=== PATIENT | male | born 1935 | race Caucasian/White ===

== ENCOUNTER 2017-10-14 10:26 | Emergency (ER) | payer OTHER, MEDICARE ==
[~2017-10-14] VITALS: Ht 167.6 cm; Wt 112.5 kg
[~2017-10-14 10:26] MED LIST: ALBU0.08 INH; ASPEC81 PO; CRG125 PO; DRGTP12 TOP; FLUT1AER14; FLUT1INH7 INH; GLC500 PO; LINA1TAB PO; MAGN400T6 PO; MOME100A INH; POTA10TA; PRED10TA PO; XPNIN INH
[2017-10-14 10:34] VITALS: Ht 167.6 cm; Wt 112.5 kg
[2017-10-14 10:57] VITALS: TEMP 36.6
[2017-10-14] MEDS ORDERED: MoRPHine SULFATE 10 MG/ML CARP/VIAL IV STA (11:06)
[2017-10-14] MEDS ORDERED: ACETAMINOPHEN IV 100 ML IV STA (11:09)
--- NOTE | 2017-10-14 11:09 | EMERGENCY ROOM VISIT NOTE ---
History Report prepared by Stacia: Murali Jimenez Under the Supervision of: Dr. Mauricio Blair M.D. First contact with patient: 10:37 Chief Complaint: BACK PAIN Stated Complaint: BACK PAIN History of Present Illness The patient is a 82 year old male who presents to the Emergency Room via EMS with complaints of worsening back pain that began 2 days ago. Patient states the pain is located on top of a "fatty" tumor near a rib on his back. He describes the pain as sharp and achy. Patient states he took Oxycodone prior to EMS arriving but it did not relieve the pain. Patient states he has a history of stage 3 metastatic lung cancer and "fatty" tumors. He states his oncologist is Dr. Dow. Patient states he uses 3L of oxygen for history of COPD. He adds he has a fentanyl patch for his chronic pain. He states he takes Aspirin. Patient is present with his son and daughter. Source of History: patient Onset: 2 days ago Position: back Quality: ache, sharp Timing: worsening Modifying Factors (Relieving): other (None) Review of Systems See HPI for pertinent positives and negatives. A total of ten systems were reviewed and were otherwise negative. Past Medical & Surgical Medical Problems: (1) Acute and chronic respiratory failure with hypoxia (2) COPD exacerbation (3) Diabetes mellitus, type II (4) Lung mass (5) Pneumonia Family History Omitted secondary to age. Social History Smoking Status: Former Smoker Marital Status: Housing Status: lives alone Occupation Status: retired Current/Historical Medications Scheduled Albuterol Sulf (Proventil 0.083% 2.5MG/3ML), 2.5 MG INH QID Aspirin (Aspirin Ec), 81 MG PO DAILY Carvedilol (Coreg), 12.5 MG PO BID Esomeprazole Magnesium (Nexium), 40 MG PO BID Ezetimibe (Zetia), 10 MG PO DAILY Fentanyl (Fentanyl), 12 MCG TOP [id number] Jxalurzodpq-Fmaisdlkjdaf-Geiim (Trelegy Ellipta 100-62.5-25 Mcg/INH), 1 PUFF INH DAILY Furosemide (Lasix), 20 MG PO DAILY Gemfibrozil (Lopid), 600 MG PO BID Ipratropium [place] (Atrovent 0.02% Soln), 2.5 ML INH QID Linagliptin (Tradjenta), 5 MG PO DAILY Magnesium Oxide (Mag-Ox), 400 MG PO DAILY Metformin Hcl (Glucophage), 1,000 MG PO BID Nitroglycerin (Nitrostat), 0.4 MG UT PRN Potassium Chloride (Klor-Con M20), 20 MEQ PEG DAILY Prednisone (Prednisone), 10 MG PO DAILY Sertraline (Zoloft), 1 TAB PO DAILY Sucralfate (Sucralfate), 1 GM PO PM Tamsulosin Hcl (Flomax), 0.4 MG PO DAILY Scheduled PRN Levalbuterol Tartrate (Levalbuterol Tartrate Hfa), 2 INHA PO Q6 PRN for COPD Lidocaine (Lidocaine), 1 PATCH TD DAILY PRN for Pain Oxycodone Hcl (Oxycontin), 15 MG PO Q6 PRN for Pain Allergies Coded Allergies: Codeine (Verified Adverse Reaction, Unknown, "FEEL LIKE I'M GOING OUT-- FLOATING", 10/14/17) Physical Exam Vital Signs Date Time Temp Pulse Resp B/P (MAP) Pulse Ox O2 Delivery O2 Flow Rate FiO2 10/14/17 16:30 76 24 137/90 93 Nasal Cannula 3.0 10/14/17 15:06 69 18 95 10/14/17 14:36 66 17 96 10/14/17 14:22 69 10/14/17 14:06 69 18 135/76 97 Nasal Cannula 3.0 10/14/17 14:06 68 12 135/76 96 10/14/17 12:36 72 24 96 10/14/17 12:31 127/88 10/14/17 12:13 72 20 96 10/14/17 12:01 136/76 10/14/17 11:52 117/75 10/14/17 11:43 74 24 96 10/14/17 11:32 97 Nasal Cannula 3.0 10/14/17 11:32 97 Nasal Cannula 3.0 10/14/17 11:13 74 20 95 10/14/17 11:02 133/88 10/14/17 10:57 36.6 75 25 154/73 95 Nasal Cannula 3.0 10/14/17 10:43 78 36 95 10/14/17 10:42 75 10/14/17 10:34 36.6 75 25 154/73 95 Nasal Cannula 3.0 Physical Exam GENERAL: Awake, alert, uncomfortable, chronically ill-appearing, in no distress HENT: Normocephalic, atraumatic. Oropharynx unremarkable. Mucous membranes are dry. EYES: Normal conjunctiva. Sclera non-icteric. NECK: Supple. No nuchal rigidity. FROM. No JVD. RESPIRATORY: Scattered wheezes otherwise clear to auscultation. CARDIAC: Regular rate, normal rhythm. Extremities warm and well perfused. Pulses equal. ABDOMEN: Soft, non-distended. No tenderness to palpation. No rebound or guarding. No masses. RECTAL: Deferred. MUSCULOSKELETAL: Mild tenderness to left mid back and left flank otherwise chest examination reveals no tenderness. The back is symmetrical on inspection without obvious abnormality. There is no CVA tenderness to palpation. No joint edema. LOWER EXTREMITIES: Calves are equal size bilaterally and non-tender. No edema. No discoloration. NEURO: Normal sensorium. No sensory or motor deficits noted. SKIN: No rash or jaundice noted. Medical Decision & Procedures ER Provider Diagnostic Interpretation: Radiology results as stated below per my review and radiologist interpretation: CHEST ONE VIEW PORTABLE HISTORY: 82 years-old Male CHEST PAIN acute atypical chest pain COMPARISON: Chest radiograph 10/02/2017, CT chest 10/01/2017 TECHNIQUE: Portable AP view of the chest FINDINGS: Soft tissue opacity about the right mediastinum and paratracheal tissues on the right redemonstrated. Linear atelectasis of the right upper lobe with subsegmental left basilar opacities. No pneumothorax, pleural effusion or overt pulmonary edema. The lungs are mildly hypoinflated. Cardiac silhouette is enlarged. Bones of the chest appear grossly intact. Calcific tendinosis about the left shoulder. IMPRESSION: 1. Redemonstration of the masslike opacity about the right hilum with soft tissue prominence of the right paratracheal tissues, better seen and described on comparison CT chest 10/01/2017. 2. Subsegmental right upper lobe and left basilar opacities suggest atelectasis. 3. Cardiomegaly. The above report was generated using voice recognition software. It may contain grammatical, syntax or spelling errors. Electronically signed by: Ibrahima Figueroa M.D. 10/14/2017 11:26 AM ABDOMEN AND PELVIS CT WITH IV CONTRAST CT DOSE: 1307.45 mGy.cm HISTORY: Acute left flank pain and back pain with history of lung cancer left flank pain, lung cancer, metastatic disease TECHNIQUE: Multiaxial CT images of the abdomen and pelvis were performed following the use of intravenous contrast. A dose lowering technique was utilized adhering to the principles of ALARA. COMPARISON STUDY: CTA chest of same day FINDINGS: Lesion of the pericardium and subpericardial fat redemonstrated. Coronary arterial calcifications. Mural fibrofatty changes of the left ventricular apex suggest prior infarction. Subsegmental consolidative and groundglass opacities about the left lung base. No pneumatosis or pneumoperitoneum. Ill-defined 1.8 cm hypodense mass of the left hepatic lobe, image 136 series 3. Probable cyst of the left hepatic lobe seen on image 153 series 3 measures 1.5 cm. No intrahepatic biliary ductal dilation. Punctate calcified granuloma the medial right hepatic lobe. Mild gallbladder distention. Spleen, pancreas and left fibula are unremarkable. Mild nodular thickening of the right adrenal gland. Mild nonspecific bilateral perinephric stranding. 2.2 cm cyst of the posterior interpolar left kidney. Mild cortical lobulation bilaterally. No renal calculi or Dr. uropathy. Mild prostamegaly with mild urinary bladder distention. No filling defects identified within the ureters or collecting systems. There is omental nodules are seen measuring up to 1.6 cm about the lateral left midabdomen. Nodules are seen within the retroperitoneum measuring up to 1.1 cm, image 197 series 3 and measuring up to 1.3 cm on image 161 series 3. Moderate calcification of the aorta with fusiform infrarenal abdominal aortic aneurysm, 3.8 x 4.0 cm. No dissection. The IVC appears unremarkable. There is no bowel obstruction or focal bowel wall thickening. Colonic diverticulosis without diverticulitis. Terminal ileum and appendix appear unremarkable. The soft tissues are within normal limits. There are no definite suspicious lytic or blastic bony lesions to suggest osseous metastasis. Advanced facet arthropathy about the lower lumbar spine. There is an acute nondisplaced fracture of the posterior lateral left 10th rib. No acute compression fracture. IMPRESSION: 1. Acute nondisplaced fracture of the posterior lateral left 10th rib. 2. Subsegmental consolidative and groundglass opacities about the left lung base suggest atelectasis or pulmonary contusion with pneumonitis also in the differential. 3. 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 4. Ill-defined hypodense 1.8 cm lesion of the left hepatic lobe. Differential considerations would include hemangioma or metastasis. This can be correlated with a nonemergent MRI of the liver. 5. Colonic diverticulosis without diverticulitis. 6. Additional findings as above. Electronically signed by: Ibrahima Figueroa M.D. 10/14/2017 2:39 PM (CHEST FOR PE) ANGIO WITH CT DOSE: 723.25 mGy.cm HISTORY: 82 years-old Male with . Presents with acute back pain and chest pain with shortness of breath. No reported trauma TECHNIQUE: Multiple CTA images of the chest were obtained after the intravenous administration of 113 ml Optiray 320. Coronal and sagittal MIPS were obtained from the axial data set and were submitted for review. A dose lowering technique was utilized adhering to the principles of ALARA. COMPARISON: CT abdomen and pelvis of same day, CT chest 10/01/2017 FINDINGS: Motion degraded exam. CTA: Moderate multichamber cardiac enlargement. Coronary arterial calcifications are noted. There is moderate mixed plaquing about the thoracic aorta, notably with eccentric atheromatous plaque at the aortic isthmus and proximal descending thoracic aorta appearing unchanged. There is no aortic aneurysm or dissection. There is tortuosity about the descending thoracic aorta. The imaged great vessels appear patent. The pulmonary arterial tree is opacified to the subsegmental branches, however the segmental and subsegmental branches are not well evaluated secondary to respiratory motion artifact. No central pulmonary embolus identified. CT CHEST: No dominant thyroid nodule identified. Pathologically enlarged mediastinal lymph nodes are redemonstrated including right paratracheal lymph nodes measuring up to 2.3 x 1.2 cm, unchanged. Ill-defined soft tissue nodularity measuring 1.6 x 0.9 cm is noted involving the pericardium into the subcutaneous pericardial fat, image 95 series 4. Soft tissue attenuating mass of the right hilum redemonstrated measuring 4.6 x 3.3 cm, image 157 series 4 which narrows and occludes the right upper lobe bronchus. There is progressively worsened partial collapse of the right upper lobe with superior elevation of the minor fissure. The mass displaces the adjacent pulmonary vasculature. Subsegmental consolidative and groundglass opacities about the left lung base. No definite suspicious pulmonary nodules to suggest pulmonary metastasis. Mild subsegmental right basilar atelectasis. There are a few scattered areas of pleural calcification. No acute process of the imaged upper abdomen. Soft tissues are within normal limits. The bones appear intact. IMPRESSION: 1. Motion degraded exam without acute aortic pathology or evidence of pulmonary thromboembolic disease. 2. 4.6 cm right hilar mass suggestive of primary bronchogenic carcinoma redemonstrated with narrowing and occlusion of the right upper lobe bronchus. There is progressively worsened partial collapse of the right upper lobe from comparison study 10/01/2017. If not already conducted, bronchoscopy with tissue sampling is needed. 3. Enlarged mediastinal adenopathy redemonstrated suggesting lymphatic metastasis. Masslike soft tissue nodule measuring 1.6 cm involving the anterior pericardium extending into the subpericardial fat is also suspicious for metastasis. 4. Subsegmental consolidative and groundglass opacities about the left lung base suggest atelectasis or pneumonitis. 5. Cardiomegaly. The above report was generated using voice recognition software. It may contain grammatical, syntax or spelling errors. Electronically signed by: Ibrahima Figueroa M.D. 10/14/2017 2:12 PM Laboratory Results 10/14/17 11:30 Red Blood Count 3.76, Mean Corpuscular Volume 91.2, Mean Corpuscular Hemoglobin 29.8, Mean Corpuscular Hemoglobin Concent 32.7, Mean Platelet Volume 9.5, Neutrophils (%) (Auto) 81.0, Lymphocytes (%) (Auto) 10.9, Monocytes (%) (Auto) 5.9, Eosinophils (%) (Auto) 0.7, Basophils (%) (Auto) 0.2, Neutrophils # (Auto) 8.43, Lymphocytes # (Auto) 1.13, Monocytes # (Auto) 0.61, Eosinophils # (Auto) 0.07, Basophils # (Auto) 0.02 10/14/17 11:30 Test 10/14/17 11:30 10/14/17 15:50 White Blood Count 10.40 K/uL (4.8-10.8) Red Blood Count 3.76 M/uL (4.7-6.1) Hemoglobin 11.2 g/dL (14.0-18.0) Hematocrit 34.3 % (42-52) Mean Corpuscular Volume 91.2 fL (80-100) Mean Corpuscular Hemoglobin 29.8 pg (25-34) Mean Corpuscular Hemoglobin Concent 32.7 g/dl (32-36) Platelet Count 221 K/uL (130-400) Mean Platelet Volume 9.5 fL (7.4-10.4) Neutrophils (%) (Auto) 81.0 % Lymphocytes (%) (Auto) 10.9 % Monocytes (%) (Auto) 5.9 % Eosinophils (%) (Auto) 0.7 % Basophils (%) (Auto) 0.2 % Neutrophils # (Auto) 8.43 K/uL (1.4-6.5) Lymphocytes # (Auto) 1.13 K/uL (1.2-3.4) Monocytes # (Auto) 0.61 K/uL (0.11-0.59) Eosinophils # (Auto) 0.07 K/uL (0-0.5) Basophils # (Auto) 0.02 K/uL (0-0.2) RDW Standard Deviation 48.4 fL (36.4-46.3) RDW Coefficient of Variation 14.5 % (11.5-14.5) Immature Granulocyte % (Auto) 1.3 % Immature Granulocyte # (Auto) 0.14 K/uL (0.00-0.02) Anion Gap 9.0 mmol/L (3-11) Est Creatinine Clear Calc Drug Dose 59.3 ml/min Estimated GFR () 68.8 Estimated GFR (Non- 59.4 BUN/Creatinine Ratio 23.7 (10-20) Calcium Level 8.9 mg/dl (8.5-10.1) Magnesium Level 1.9 mg/dl (1.8-2.4) Total Bilirubin 0.3 mg/dl (0.2-1) Direct Bilirubin 0.1 mg/dl (0-0.2) Aspartate Amino Transf (AST/SGOT) 29 U/L (15-37) Alanine Aminotransferase (ALT/SGPT) 52 U/L (12-78) Alkaline Phosphatase 57 U/L (45-117) Troponin I < 0.015 ng/ml (0-0.045) Total Protein 7.1 gm/dl (6.4-8.2) Albumin 3.4 gm/dl (3.4-5.0) Lipase 336 U/L (73-393) Urine Color YELLOW Urine Appearance CLEAR (CLEAR) Urine pH 5.0 (4.5-7.5) Urine Specific [place] > 1.045 (1.000-1.030) Urine Protein NEG (NEG) Urine Glucose (UA) NEG (NEG) Urine Ketones NEG (NEG) Urine Occult Blood NEG (NEG) Urine Nitrite NEG (NEG) Urine Bilirubin NEG (NEG) Urine Urobilinogen NEG (NEG) Urine Leukocyte Esterase NEG (NEG) Laboratory results reviewed by me Medications Administered Medications (Trade) Dose Ordered Sig/Magdi Route Start Time Stop Time Status Last Admin Dose Admin Morphine Sulfate (MoRPHine SULFATE INJ) 8 mg NOW STAT IV 10/14/17 11:06 10/14/17 11:08 DC 10/14/17 11:47 8 MG Acetaminophen 100 ml @ 400 mls/hr NOW STAT IV 10/14/17 11:09 10/14/17 11:23 DC 10/14/17 11:48 400 MLS/HR Lidocaine (Lidoderm Patch 5%) 1 patch NOW STAT TD 10/14/17 15:02 10/14/17 15:04 DC 10/14/17 15:39 1 PATCH ECG Per My Interpretation Indication: back/shoulder pain Rate (beats per minute): 72 Rhythm: normal sinus Findings: no acute ischemic change, other (Normal axis) ED Course 1038: The patient was evaluated in room A10. A complete history and physical exam was performed. Medical Decision I reviewed the patient's past medical history, medications, and the nursing notes as described above. Differential diagnosis: Etiologies such as musculoskeletal, disc herniation, fracture, aortic disease, metastatic disease, cord compression, discitis, infection, renal colic, gastrointestinal, acute exacerbation of chronic back pain, sciatica, cauda equina, as well as others were entertained. The patient is a pleasant 82-year-old gentleman with a past medical history of a recent diagnosis of metastatic small cell lung cancer, COPD on 3 L nasal cannula at baseline, CHF, hypertension who presents emergency department with persistent left mid thoracic pain per hpi. On arrival the patient is uncomfortable and chronically ill-appearing but no acute distress, afebrile stable vital signs, on his 3 L nasal cannula. On exam the patient has mild tenderness along the paraspinal left mid thoracic region. There is no masses, erythema, warmth, or crepitus. On exam the patient has diminished breath sounds at the bases with scant intermittent wheeze. WBC within normal limits, chemistry unremarkable without evidence of acidosis, UA negative without blood. Overall the patient's CT of his chest, abdomen pelvis demonstrates worsening metastatic disease. In particular the patient was observed to have a left posterior lateral 10th rib fracture that likely explains the patient's pain he is tender exactly in this area. Otherwise, the scan is negative for PE. Unclear the etiology to the patient's rib fracture at this time given that he denies any falls. However given the mechanism where he says he was bending over to tie his shoe is suspicious for possible pathologic fracture. The patient does have a PET scan scheduled for tomorrow morning as part of his overall staging to help inform treatment. Given the patient is reporting his respiratory status is at his baseline and is otherwise in no distress with pain controlled after IV morphine, there is no indication for admission at this time. Additionally, given that the patient is afebrile with WBC within normal limits unlikely to have infectious process at this time. Additionally it is important to continue with the patient's scheduled staging and treatment planning for his cancer should proceed promptly. Thus, will optimize his pain control with Lidoderm patch and scheduled Tylenol in addition to his already prescribed as needed oxycodone. He will also perform incentive spirometer as well. Patient and family were counseled on the risks of rib fractures in the elderly and thus was instructed to return to the emergency department with any worsening in his respiratory status. Findings and plan for follow-up reviewed with patient. Patient agreeable and d/c'd per discharge instructions. Impression Primary Impression: Left rib fracture Additional Impressions: Small cell lung cancer Metastatic disease Scribe Attestation The scribe's documentation has been prepared under my direction and personally reviewed by me in its entirety. I confirm that the note above accurately reflects all work, treatment, procedures, and medical decision making performed by me. Departure Information Dispostion Home / Self-Care Prescriptions Lidocaine (Lidocaine) 1 Patch Tdsy 1 PATCH TD DAILY Y for Pain, #10 PATCH Prov: Mauricio Blair M.D. 10/14/17 Referrals Raj Shi D.O. (PCP) Patient Instructions Cancer Lung, ED Fx Rib, [facility] Additional Instructions Please follow up with your providers as scheduled this week for re-evaluation and to continue your evaluation and treatment planning for your metastatic lung cancer You were found to have a new left rib fracture that explains her pain today. Otherwise, your CT scan did demonstrate worsening of your known metastatic disease. Continue your current medications as prescribed. Take acetaminophen every 6 hours to help with pain control. Use your oxycodone as prescribed by her doctor for additional breakthrough pain. Lidoderm patch for additional pain relief. Incentive spirometer 10 times an hour while awake. Return to the emergency department for worsening symptoms as described in the accompanying instructions. Problem Qualifiers
--- NOTE | 2017-10-14 11:28 | DIAGNOSTIC IMAGING REPORT ---
CHEST ONE VIEW PORTABLE HISTORY: 82 years-old Male CHEST PAIN acute atypical chest pain COMPARISON: Chest radiograph 10/02/2017, CT chest 10/01/2017 TECHNIQUE: Portable AP view of the chest FINDINGS: Soft tissue opacity about the right mediastinum and paratracheal tissues on the right redemonstrated. Linear atelectasis of the right upper lobe with subsegmental left basilar opacities. No pneumothorax, pleural effusion or overt pulmonary edema. The lungs are mildly hypoinflated. Cardiac silhouette is enlarged. Bones of the chest appear grossly intact. Calcific tendinosis about the left shoulder. IMPRESSION: 1. Redemonstration of the masslike opacity about the right hilum with soft tissue prominence of the right paratracheal tissues, better seen and described on comparison CT chest 10/01/2017. 2. Subsegmental right upper lobe and left basilar opacities suggest atelectasis. 3. Cardiomegaly. The above report was generated using voice recognition software. It may contain grammatical, syntax or spelling errors. Electronically signed by: Ibrahima Figueroa M.D. 10/14/2017 11:26 AM Dictated Date/Time: 10/14/2017 11:23 AM
[2017-10-14 11:32] VITALS: O2SAT 97
[2017-10-14 11:44] LABS: BASO % 0.2 %; BASO ABS # 0.02 K/uL (0-0.2); EOS % 0.7 %; EOS ABS # 0.07 K/uL (0-0.5); HEMATOCRIT 34.3 % (42-52); HEMOGLOBIN 11.2 g/dL (14.0-18.0); IG# 0.14 K/uL (0.00-0.02); LYMPH % 10.9 %; LYMPH ABS # 1.13 K/uL (1.2-3.4); MEAN CELL VOLUME 91.2 fL (80-100); MEAN CORPUSCULAR HEMOGLOBIN 29.8 pg (25-34); MEAN CORPUSCULAR HGB CONC 32.7 g/dl (32-36); MEAN PLATELET VOLUME 9.5 fL (7.4-10.4); MONO % 5.9 %; MONO ABS # 0.61 K/uL (0.11-0.59); NEUT ABS # 8.43 K/uL (1.4-6.5); PLATELET COUNT 221 K/uL (130-400); RED CELL DISTRIBUTION WIDTH CV 14.5 % (11.5-14.5); RED CELL DISTRIBUTION WIDTH SD 48.4 fL (36.4-46.3)
[2017-10-14 12:07] LABS: ALBUMIN 3.4 gm/dl (3.4-5.0); ALKALINE PHOSPHATASE 57 U/L (45-117); ALT/SGPT 52 U/L (12-78); AST/SGOT 29 U/L (15-37); BLOOD UREA NITROGEN 27 mg/dl (7-18); CALCIUM 8.9 mg/dl (8.5-10.1); CARBON DIOXIDE 25 mmol/L (21-32); CREATININE 1.15 mg/dl (0.60-1.40); GLUCOSE 178 mg/dl (70-99); LIPASE 336 U/L (73-393); POTASSIUM 4.8 mmol/L (3.5-5.1); SODIUM 138 mmol/L (136-145); TOTAL PROTEIN 7.1 gm/dl (6.4-8.2)
[2017-10-14] MEDS ORDERED: CARV12.52 PO (13:24)
[2017-10-14] MEDS ORDERED: FLUT1AER14 INH (13:24)
[2017-10-14] MEDS ORDERED: OXYC15TA89 PO (13:24)
[2017-10-14] MEDS ORDERED: LINA1TAB PO (13:24)
[2017-10-14] MEDS ORDERED: LEVA45AE PO (13:24)
[2017-10-14] MEDS ORDERED: PRED10TA PO (13:24)
[2017-10-14] MEDS ORDERED: ALBINS/ INH (13:24)
[2017-10-14] MEDS ORDERED: MCRK20 PEG (13:24)
[2017-10-14] MEDS ORDERED: ASPI81TA28 PO (13:24)
[2017-10-14] MEDS ORDERED: METF1000 PO (13:24)
[2017-10-14] MEDS ORDERED: OPTIRAY 320 IV PRN (13:30)
--- NOTE | 2017-10-14 14:14 | DIAGNOSTIC IMAGING REPORT ---
(CHEST FOR PE) ANGIO WITH CT DOSE: 723.25 mGy.cm HISTORY: 82 years-old Male with . Presents with acute back pain and chest pain with shortness of breath. No reported trauma TECHNIQUE: Multiple CTA images of the chest were obtained after the intravenous administration of 113 ml Optiray 320. Coronal and sagittal MIPS were obtained from the axial data set and were submitted for review. A dose lowering technique was utilized adhering to the principles of ALARA. COMPARISON: CT abdomen and pelvis of same day, CT chest 10/01/2017 FINDINGS: Motion degraded exam. CTA: Moderate multichamber cardiac enlargement. Coronary arterial calcifications are noted. There is moderate mixed plaquing about the thoracic aorta, notably with eccentric atheromatous plaque at the aortic isthmus and proximal descending thoracic aorta appearing unchanged. There is no aortic aneurysm or dissection. There is tortuosity about the descending thoracic aorta. The imaged great vessels appear patent. The pulmonary arterial tree is opacified to the subsegmental branches, however the segmental and subsegmental branches are not well evaluated secondary to respiratory motion artifact. No central pulmonary embolus identified. CT CHEST: No dominant thyroid nodule identified. Pathologically enlarged mediastinal lymph nodes are redemonstrated including right paratracheal lymph nodes measuring up to 2.3 x 1.2 cm, unchanged. Ill-defined soft tissue nodularity measuring 1.6 x 0.9 cm is noted involving the pericardium into the subcutaneous pericardial fat, image 95 series 4. Soft tissue attenuating mass of the right hilum redemonstrated measuring 4.6 x 3.3 cm, image 157 series 4 which narrows and occludes the right upper lobe bronchus. There is progressively worsened partial collapse of the right upper lobe with superior elevation of the minor fissure. The mass displaces the adjacent pulmonary vasculature. Subsegmental consolidative and groundglass opacities about the left lung base. No definite suspicious pulmonary nodules to suggest pulmonary metastasis. Mild subsegmental right basilar atelectasis. There are a few scattered areas of pleural calcification. No acute process of the imaged upper abdomen. Soft tissues are within normal limits. The bones appear intact. IMPRESSION: 1. Motion degraded exam without acute aortic pathology or evidence of pulmonary thromboembolic disease. 2. 4.6 cm right hilar mass suggestive of primary bronchogenic carcinoma redemonstrated with narrowing and occlusion of the right upper lobe bronchus. There is progressively worsened partial collapse of the right upper lobe from comparison study 10/01/2017. If not already conducted, bronchoscopy with tissue sampling is needed. 3. Enlarged mediastinal adenopathy redemonstrated suggesting lymphatic metastasis. Masslike soft tissue nodule measuring 1.6 cm involving the anterior pericardium extending into the subpericardial fat is also suspicious for metastasis. 4. Subsegmental consolidative and groundglass opacities about the left lung base suggest atelectasis or pneumonitis. 5. Cardiomegaly. The above report was generated using voice recognition software. It may contain grammatical, syntax or spelling errors. Electronically signed by: Ibrahima Figueroa M.D. 10/14/2017 2:12 PM Dictated Date/Time: 10/14/2017 2:03 PM
--- NOTE | 2017-10-14 14:40 | DIAGNOSTIC IMAGING REPORT ---
ABDOMEN AND PELVIS CT WITH IV CONTRAST CT DOSE: 1307.45 mGy.cm HISTORY: Acute left flank pain and back pain with history of lung cancer left flank pain, lung cancer, metastatic disease TECHNIQUE: Multiaxial CT images of the abdomen and pelvis were performed following the use of intravenous contrast. A dose lowering technique was utilized adhering to the principles of ALARA. COMPARISON STUDY: CTA chest of same day FINDINGS: Lesion of the pericardium and subpericardial fat redemonstrated. Coronary arterial calcifications. Mural fibrofatty changes of the left ventricular apex suggest prior infarction. Subsegmental consolidative and groundglass opacities about the left lung base. No pneumatosis or pneumoperitoneum. Ill-defined 1.8 cm hypodense mass of the left hepatic lobe, image 136 series 3. Probable cyst of the left hepatic lobe seen on image 153 series 3 measures 1.5 cm. No intrahepatic biliary ductal dilation. Punctate calcified granuloma the medial right hepatic lobe. Mild gallbladder distention. Spleen, pancreas and left fibula are unremarkable. Mild nodular thickening of the right adrenal gland. Mild nonspecific bilateral perinephric stranding. 2.2 cm cyst of the posterior interpolar left kidney. Mild cortical lobulation bilaterally. No renal calculi or Dr. uropathy. Mild prostamegaly with mild urinary bladder distention. No filling defects identified within the ureters or collecting systems. There is omental nodules are seen measuring up to 1.6 cm about the lateral left midabdomen. Nodules are seen within the retroperitoneum measuring up to 1.1 cm, image 197 series 3 and measuring up to 1.3 cm on image 161 series 3. Moderate calcification of the aorta with fusiform infrarenal abdominal aortic aneurysm, 3.8 x 4.0 cm. No dissection. The IVC appears unremarkable. There is no bowel obstruction or focal bowel wall thickening. Colonic diverticulosis without diverticulitis. Terminal ileum and appendix appear unremarkable. The soft tissues are within normal limits. There are no definite suspicious lytic or blastic bony lesions to suggest osseous metastasis. Advanced facet arthropathy about the lower lumbar spine. There is an acute nondisplaced fracture of the posterior lateral left 10th rib. No acute compression fracture. IMPRESSION: 1. Acute nondisplaced fracture of the posterior lateral left 10th rib. 2. Subsegmental consolidative and groundglass opacities about the left lung base suggest atelectasis or pulmonary contusion with pneumonitis also in the differential. 3. 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 4. Ill-defined hypodense 1.8 cm lesion of the left hepatic lobe. Differential considerations would include hemangioma or metastasis. This can be correlated with a nonemergent MRI of the liver. 5. Colonic diverticulosis without diverticulitis. 6. Additional findings as above. Electronically signed by: Ibrahima Figueroa M.D. 10/14/2017 2:39 PM Dictated Date/Time: 10/14/2017 2:30 PM
[2017-10-14] MEDS ORDERED: LIDODERM (LIDOCAINE) PATCH 5% TD STA (15:02)
[2017-10-14] MEDS ORDERED: LDDP5 TD (15:56)
[2017-10-14 16:30] VITALS: BP 137/90; PULSE 76; O2SAT 93
[2017-10-14] MEDS ORDERED: FURO-85 PO (16:54)
[2017-10-14] MEDS ORDERED: SERT25TA PO (17:03)
[2017-10-14] MEDS ORDERED: SUCR1TAB PO (17:04)
[2017-10-14] MEDS ORDERED: TAMS0.4C38 PO (17:05)
[2017-10-14] MEDS ORDERED: NXM/40 PO (18:31)
[2017-10-14] MEDS ORDERED: NTRGSL/4 UT (18:31)
[2017-10-14] MEDS ORDERED: EZET10TA63 PO (20:42)
[2017-10-14] MEDS ORDERED: ATRINSX INH (20:42)
[2017-10-14] MEDS ORDERED: GEMF600T3 PO (20:45)
== END 2017-10-14 16:35 | disposition home or self-care (01) ==
LOC: EDBD 10:26 → C.EDA 10:27
DX: M84.48XA Pathological fracture, other site, initial encounter for fracture (principal); C34.90 Malignant neoplasm of unspecified part of unspecified bronchus or lung; C79.9 Secondary malignant neoplasm of unspecified site; J44.9 Chronic obstructive pulmonary disease, unspecified; E11.9 Type 2 diabetes mellitus without complications; I11.0 Hypertensive heart disease with heart failure; I50.9 Heart failure, unspecified; G89.29 Other chronic pain; Z87.891 Personal history of nicotine dependence; Z88.5 Allergy status to narcotic agent; Z79.82 Long term (current) use of aspirin; Z79.84 Long term (current) use of oral hypoglycemic drugs; Z79.899 Other long term (current) drug therapy

== ENCOUNTER → 2017-10-17 | Outpatient (CLI) | payer OTHER, MEDICARE ==
[~2017-10-17] MED LIST changes: +ALBINS/ INH; -ALBU0.08 INH; -ASPEC81 PO; +ASPI81TA28 PO; +ATRINSX INH; +CARV12.52 PO; -CRG125 PO; +EZET10TA63 PO; -FLUT1AER14; +FLUT1AER14 INH; -FLUT1INH7 INH; +FURO-85 PO; +GEMF600T3 PO; -GLC500 PO; +LDDP5 TD; +LEVA45AE PO; +MCRK20 PEG; +METF1000 PO; -MOME100A INH; +NTRGSL/4 UT; +NXM/40 PO; +OXYC15TA89 PO; -POTA10TA; +SERT25TA PO; +SUCR1TAB PO; +TAMS0.4C38 PO; -XPNIN INH
--- NOTE | 2017-10-17 09:47 | DIAGNOSTIC IMAGING REPORT ---
PET/CT CLINICAL HISTORY: Small cell lung cancer. TECHNIQUE: A PET/CT was performed from the skull base through the upper thighs following intravenous injection of 13.69 mCi of F 18 FDG IV. The injection was performed at 6:58 AM on October 17, 2017 and imaging began at 7:54 AM on October 17, 2017. Unenhanced CT was performed for attenuation correction purposes and anatomic localization. COMPARISON STUDY: CT of the chest, abdomen and pelvis October 14, 2017. FINDINGS: Head and neck: There is no abnormal FDG uptake within the neck. There is no cervical lymphadenopathy. Chest: Note is made of a central obstructing lesion which occludes the bronchus to the right upper lobe with associated atelectasis. Exact measurements are difficult to obtain given associated collapse. The mass measures approximately 4.4 x 3.6 cm and has marked FDG uptake within SUV max of 9.4. Two enlarged right lower paratracheal lymph nodes measure up to 1.4 cm in short axis diameter and have an SUV max of 6. This represents lai spread of disease. In addition, there is a 1.5 cm anterior pericardial nodule which has an SUV max of 4. Note is also made of a 2.1 cm subcutaneous FDG avid mass within the inferior right shoulder overlying the left latissimus dorsi muscle which has an SUV max of 5.5. The heart is moderately enlarged. Lungs are suboptimally assessed due to respiratory motion. There is no pneumothorax. An acute minimally displaced left 10th rib fracture is noted. This is associated FDG uptake. Abdomen and Pelvis: A 1.9 cm lateral segment lesion is FDG avid with an SUV max of 6.6. This represents metastatic disease. There are few foci of mild FDG uptake within the liver which are suspicious for additional hepatic metastases. Multiple left-sided abdominal nodules are noted which appear to be extraperitoneal, including a 2.1 cm left mid abdominal nodule shown image 160. This has an SUV max of 4.4. A 4 cm infrarenal abdominal aortic aneurysm is noted. There is no evidence for rupture. Musculoskeletal: Note is made of a small focus of mild FDG uptake with an SUV max of 3.8 which projects over the inferior right gluteal musculature. This is shown on axial image 254. Corresponding abnormality is not identified by CT. Note is made of mild FDG uptake within SUV max of 4 within the posterior medial aspect of the left iliac bone shown on axial image 175. IMPRESSION: 1. FDG avid right upper lobe mass which occludes the right upper lobe bronchus consistent with bronchogenic carcinoma. Multiple FDG avid metastases, including right paratracheal lai metastases, a pericardial metastasis, at least one (and several possible additional) hepatic metastasis and multiple soft tissue masses within the right shoulder and left abdomen which are consistent with a neoplastic process and likely reflect metastatic disease. 2. Mild focal FDG uptake within the inferior right gluteal musculature which is nonspecific. A metastatic focus cannot be excluded. 3. Small focus of mild FDG uptake within the posterior medial left iliac bone which could be degenerative or metastatic. 4. 4 cm infrarenal abdominal aortic aneurysm. No rupture. Electronically signed by: Antwon Walton M.D. 10/17/2017 9:45 AM Dictated Date/Time: 10/17/2017 9:03 AM
== END | disposition home or self-care (01) ==
LOC: C.PET 10-15 09:04
PROVIDERS: ATTEND Physician Assistant
DX: C34.91 Malignant neoplasm of unspecified part of right bronchus or lung (principal)

== ENCOUNTER 2017-10-18 14:03 | Inpatient (IN) | payer OTHER, MEDICARE ==
[~2017-10-18] VITALS: Ht 167.6 cm; Wt 106.0 kg
[2017-10-18 15:09] VITALS: BP 143/80; PULSE 78; TEMP 36.6; O2SAT 96
[2017-10-18 15:45] VITALS: BMI 37.5
[2017-10-18 15:48] VITALS: BP 143/80; PULSE 78; TEMP 36.6; Ht 167.6 cm; Wt 106.0 kg
[2017-10-18] MEDS ORDERED: ZOLPIDEM TARTRATE 5 MG TAB PO PRN (16:15)
[2017-10-18] MEDS ORDERED: MAGNESIUM HYDROXIDE SUSP 30 ML UDC PO PRN (16:15)
[2017-10-18] MEDS ORDERED: CARBOHYDRATES FOR HYPOGLYCEMIA PO PRN (16:15)
[2017-10-18] MEDS ORDERED: ONDANSETRON INJ 2 MG/ML 2 ML VIAL IV PRN (16:15)
[2017-10-18] MEDS ORDERED: MoRPHine SULFATE 4 MG/ML 1 ML CARP\\VIAL IV PRN (16:15)
[2017-10-18] MEDS ORDERED: GLUCOSE 10 TABS/TUBE PO PRN (16:15)
[2017-10-18] MEDS ORDERED: DEXTROSE 50% 50 ML SYR IV PRN (16:15)
[2017-10-18] MEDS ORDERED: GLUCOSE 40% GEL 15 GM TUBE PO PRN (16:15)
[2017-10-18] MEDS ORDERED: LEValbuterol HFA 15GM INHALER INH PRN (16:15)
[2017-10-18] MEDS ORDERED: GLUCAGON FOR INJ 1 MG VIAL SQ PRN (16:15)
[2017-10-18] MEDS ORDERED: LORAZEPAM INJ 0.5 MG in SYRINGE 0.75 ML IV PRN (16:15)
[2017-10-18] MEDS ORDERED: NITROGLYCERIN 0.4 MG SL PER TAB CHARGE UT SCH (16:15)
[2017-10-18] MEDS ORDERED: LIDODERM (LIDOCAINE) PATCH 5% TD ONE (16:45)
[2017-10-18] MEDS ORDERED: POLYETHYLENE (MIRALAX) 17 GM PACK PO PRN (16:45)
--- NOTE | 2017-10-18 17:03 | History and Physical ---
History & Physical Date & Time of Service: Oct 18, 2017 at 16:26 Chief Complaint: Hemoptysis, Copd, Lung Ca Primary Care Physician: Raj Shi D.O. History of Present Illness Mr. 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 Seen in the office today by Dr. Olson. He is a direct admit to our service due to uncontrolled pain, new hemoptysis, and failure to thrive. Patient had a recent admission to [facility] for shortness of breath, bronchoscopy was performed on 10/02/2017 and he was subsequently diagnosed with diffuse small cell lung cancer. He presented today to Dr. Olson's office with progressive weakness and new onset shortness of breath. Of note patient has been on 3 L of oxygen at home since before 2011. Patient recently was at home when he went to bend over and pick something up felt a great amount of pain in his side and was found to have a broken rib. Says the pain was unbearable but is currently controlled mostly with a fentanyl patch and Lidoderm patch. Past medical history is significant for diffuse small cell lung cancer predominantly in the right upper lobe occluding the right upper lobe bronchus, multiple metastases including the right paratracheal lai area, pericardial metastasis, and at least one hepatic metastasis, with multiple soft tissue masses in the right shoulder and left abdomen. Also : acute on chronic hypoxic respiratory insufficiency, COPD moderately severe, history of HI with stent 2 in 2011 and 2008, history of aspiration, cor pulmonale, oxygen dependent, GERD, hypertension, obstructive sleep apnea. Incidental finding of a 4 cm infrarenal abdominal aortic aneurysm, nonruptured, on PET scan recently. 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 Patient reports his of cancer in 2011. Patient's daughter is at bedside, and states that the plan is for him to move into her home. Smoking Status: Former Smoker Marital Status: Housing status: lives alone Occupational Status: retired Immunizations History of Influenza Vaccine: Yes History of Tetanus Vaccine?: No History of Pneumococcal: Yes History of Hepatitis B Vaccine: No Allergies Coded Allergies: Codeine (Verified Adverse Reaction, Unknown, "FEEL LIKE I'M GOING OUT-- FLOATING", 10/14/17) Home Medications Scheduled Albuterol Sulf (Proventil 0.083% 2.5MG/3ML), 2.5 MG INH QID Aspirin (Aspirin Ec), 81 MG PO DAILY Carvedilol (Coreg), 12.5 MG PO BID Esomeprazole Magnesium (Nexium), 40 MG PO BID Ezetimibe (Zetia), 10 MG PO DAILY Fentanyl (Fentanyl), 12 MCG TOP [id number] Jksjuwvwlmb-Npmizpxinrve-Glwqx (Trelegy Ellipta 100-62.5-25 Mcg/INH), 1 PUFF INH DAILY Furosemide (Lasix), 20 MG PO DAILY Gemfibrozil (Lopid), 600 MG PO BID Ipratropium [place] (Atrovent 0.02% Soln), 2.5 ML INH QID Linagliptin (Tradjenta), 5 MG PO DAILY Magnesium Oxide (Mag-Ox), 400 MG PO DAILY Metformin Hcl (Glucophage), 1,000 MG PO BID Nitroglycerin (Nitrostat), 0.4 MG UT PRN Potassium Chloride (Klor-Con M20), 20 MEQ PEG DAILY Prednisone (Prednisone), 10 MG PO DAILY Sertraline (Zoloft), 1 TAB PO DAILY Sucralfate (Sucralfate), 1 GM PO PM Tamsulosin Hcl (Flomax), 0.4 MG PO DAILY Scheduled PRN Levalbuterol Tartrate (Levalbuterol Tartrate Hfa), 2 INHA PO Q6 PRN for COPD Lidocaine (Lidocaine), 1 PATCH TD DAILY PRN for Pain Oxycodone Hcl (Oxycontin), 15 MG PO Q6 PRN for Pain Review of Systems Review of systems reveals that patient denies headache or visual change. He does note occasional difficulty swallowing large pills which he says is due to the fact that his tumor is partially compressing on his esophagus. Patient denies chest pain, nasal cannula is in place and patient says his breathing is at his baseline. Patient denies abdominal pain nausea, or vomiting, also denies numbness and tingling in his legs. Physical Exam Vital Signs Date Time Temp Pulse Resp B/P (MAP) Pulse Ox O2 Delivery O2 Flow Rate FiO2 10/18/17 15:48 36.6 78 20 143/80 Nasal Cannula 3.0 10/18/17 15:48 Nasal Cannula 3.0 10/18/17 15:09 36.6 78 20 143/80 (101) 96 GENERAL: Awake, alert, well-nourished, in no distress. Nasal cannula in place. HENT: Normocephalic, atraumatic. Extraocular muscles intact. EYES: Normal conjunctiva. Sclera non-icteric. NECK: Supple. Full range of motion. RESPIRATORY: Clear to auscultation albeit diminished at the bases. CARDIAC: Regular rate, normal rhythm. Grade 2 out of 6 to 3 out of 6 crescendo decrescendo systolic murmur heard best over the aortic valve. Extremities warm and well perfused. Pulses equal. ABDOMEN: Soft, non-distended. No tenderness to palpation. No rebound or guarding. No masses. Patient has a back brace in place. LOWER EXTREMITIES: Calves are equal size bilaterally and non-tender. No edema. No discoloration. NEURO: No focal motor deficits noted. SKIN: No rash or jaundice noted. Impression Assessment and Plan Mr. 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 Small cell lung cancer with metastases -Consult radiation oncology -Consult hematology oncology -Pain is currently controlled on patient's home regimen of fentanyl patch 12 mcg every 72 hours and Lidoderm patch. Will continue this while an inpatient. Also added morphine IV 4 mg every 4 hours as needed for moderate to severe pain. -Patient states he is due for an MRI tomorrow. Will coordinate so that that can still be done. Patient states he does experience anxiety and claustrophobia. As needed Ativan IV has been ordered to be given before MRI done. -Patient's daughter had many questions about how best to accommodate her father at this time. I asked her if she would be interested in a palliative consult to help with these questions. Patient and daughter agreed. Palliative consult ordered. COPD, chronic hypoxic respiratory failure -Continue home nebulizer treatments 4 times daily in the form of DuoNeb's as well as as needed. -O2 per protocol. Patient is on 3 L at home. -Continue home prednisone 10 mg every morning Type 2 diabetes -Hold home and take glycemic's. -Insulin sliding scale -10 units of basal Lantus insulin twice a day Hypertension / CAD / hyperlipidemia -Continue home ezetimibe and gemfibrozil 600 mg twice daily -Continue home carvedilol 12.5 twice daily, Nitrostat as needed, aspirin 81 mg daily. Edema -Continue furosemide 20 mg daily -Continue home Klor-Con 20 mEq daily GERD -Replaced by Protonix 40 mg twice daily -Continue home sucralfate Depression/anxiety -Continue home sertraline 25 mg daily BPH -Continue Flomax 0.4 mg daily FEN/GI: AHA diet, diabetic diet. No fluids indicated at this time DVT prophylaxis: Lovenox 40 mg every 12 hour CODE STATUS: DNR. Discussed and confirmed with patient today. Dispo: MedSurg. Pending radiation oncology, hematology oncology recs. Palliative recs pending. DC planning. PT OT. Resident Physician Supervision Note: I interviewed and examined the patient. Discussed with Dr. Gruber and agree with findings and plan as documented in the note. Any exceptions or clarifications are listed here: None Documented By: Ad olson earlier. chest pain doing better now. hemoptysis vitals noted nad breathing unlabored no pallor or icterus new dx lung ca w new hemoptysis and chest pain -pulmonary direct admit due to concern on decline -supportive care, pain control -oncology evaluations, otherwise as above Advanced Directives Existing Living Will: No Existing Power of Door Core Assembler: No Resuscitation Status DO NOT RESUSCITATE VTE Prophylaxis Will order VTE Prophylaxis: Yes Social Service Consult Cancer Patient Under [place] Additional Copies To Raj Shi D.O. Resident Tracking Resident Involvement: Resident Care Provided Care Provided: Adult Hospital Medicine
[2017-10-18] MEDS: INSULIN ASPART 100 UNITS/ML 3 ML PEN SC SCH ×2 (17:26→20:42)
[2017-10-18] MEDS: ALBUT/IPRATROP 3MG/0.5MG NEB 3 ML VIAL INH SCH (19:39)
[2017-10-18 19:42] VITALS: PULSE 67; O2SAT 97
[2017-10-18] MEDS: PANTOprazole SOD 40 MG TAB PO SCH (20:41)
[2017-10-18] MEDS: ENOXAPARIN 30 MG/0.3 ML SYR SQ SCH (20:41)
[2017-10-18] MEDS: GEMFIBROZIL 600 MG TAB PO SCH (20:41)
[2017-10-18] MEDS: CARVEDILOL 12.5 MG TAB PO SCH (20:41)
[2017-10-18] MEDS: SUCRALFATE 1 GM TAB PO SCH (20:42)
[2017-10-18] MEDS ORDERED: INSULIN GLARGINE SOLOSTAR 100 UNITS/ML 3 ML PEN SC SCH (21:00)
[2017-10-18] MEDS: CHECK FENTANYL PATCH PLACEMENT SCH (22:53)
[2017-10-19] VITALS (9 sets, daily range): BP systolic 111–145; BP diastolic 62–79; PULSE 66–79; TEMP 36.4–36.7; O2SAT 94–96
[2017-10-19] MEDS: ACETAMINOPHEN 325 MG TAB PO PRN (02:18)
[2017-10-19] MEDS: LIDODERM (LIDOCAINE) PATCH 5% TD SCH (06:58)
[2017-10-19] MEDS: ALBUT/IPRATROP 3MG/0.5MG NEB 3 ML VIAL INH SCH ×4 (07:20→18:51)
[2017-10-19] MEDS: CHECK FENTANYL PATCH PLACEMENT SCH ×2 (08:00→16:00)
[2017-10-19] MEDS: ASPIRIN 81 MG ECTAB PO SCH (08:32)
[2017-10-19] MEDS: CARVEDILOL 12.5 MG TAB PO SCH ×2 (08:32→20:12)
[2017-10-19] MEDS: TAMSULOSIN HCL 0.4 MG CAP PO SCH (08:33)
[2017-10-19] MEDS: SERTRALINE HCL 50 MG TAB PO SCH (08:33)
[2017-10-19] MEDS: FUROSEMIDE 20 MG TAB PO SCH (08:34)
[2017-10-19] MEDS: PANTOprazole SOD 40 MG TAB PO SCH ×2 (08:34→20:13)
[2017-10-19] MEDS: GEMFIBROZIL 600 MG TAB PO SCH ×2 (08:34→20:13)
[2017-10-19] MEDS: MAGNESIUM OXIDE 400 MG TAB PO SCH (08:35)
[2017-10-19] MEDS: EZETIMIBE 10MG TAB PO SCH (08:35)
[2017-10-19] MEDS: POTASSIUM CHLORIDE 20 MEQ TABCR PO SCH (08:36)
[2017-10-19] MEDS: ENOXAPARIN 30 MG/0.3 ML SYR SQ SCH ×2 (08:36→20:19)
[2017-10-19] MEDS ORDERED: FLUTICASONE UMECLIDINIUM VILAN INH SCH (09:00)
[2017-10-19] MEDS ORDERED: [UNRECOGNIZED DRUG - OTHER] INH SCH (09:00)
--- NOTE | 2017-10-19 09:08 | Palliative Care Consultation ---
Consultation Date of Consultation: Oct 19, 2017. Requesting Physician: Dr. Gruber Attending Physician: Dr. Gruber, Dr. Chanel Reason for Consultation: Goals of care History of Present Illness This 82 year old male patient with PMH newly diagnosed RUL small cell lung carcinoma, chronic respiratory failure on 3LNC home oxygen, COPD, and others listed below, presented to the hospital as a direct admit from Dr. Qiu's office for weakness and hemoptysis. CXR completed yesterday showed no significant change from previous, slightly improved basilar atelectasis. Hgb stable at 10.8 yesterday (was 11.2 10/14). Radiation oncology was consulted as patient was to have MRI done today and meet with them about starting radiation treatments. Palliative care consulted to discuss goals of care as the patient's daughter explained that the plan is for him to move in to her home and for eventual hospice care. I met with the patient this morning in room 255. He is awake, alert and oriented x4. He is sitting on side of bed and looks to be of good functional status, in no distress. He c/o mild pain/discomfort in left rib where he has a fracture, but it is well controlled with his fentanyl patch and lidoderm patch. Patient states that he does plan to move in with his daughter/POA, Ema Nelson. Patient had cancer, was on hospice, and in the home, so he is familiar with hospice services. Patient stated, "I have to give it [cancer treatment] a try, if it's going to help. But if my heart stops or I stop breathing I don't want any CPR." Patient is amenable to hospice services once he has completed his treatment and/or can no longer tolerate treatment. He has home health on board now. We discussed a POLST form at length and completed it: DNR, limited additional interventions, abx if life can be prolonged, trial period of IVF, NO FEEDING TUBE. Additional orders: "Trial of treatment, including abx, if it's going to help. If no hope of meaningful recovery, make me comfortable." Patient's grandson then entered room and he was updated on POLST form and goals. Patient's daughter Ema Nelson and Renzo "Kellen Theodore Jr. are patient's POAs. 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 GERD HTN VALENTINO 4cm infrarenal abdominal aortic aneurysm Social History Smoking Status: Former Smoker History of Alcohol Use: No (Quit 1995) Marital Status: Housing Status: lives alone Occupation Status: retired Review of Systems Constitutional: + weakness, No fever, No chills ENT: No trouble swallowing Respiratory: + cough, + shortness of breath, + dyspnea on exertion, + hemoptysis (none since admission), No wheezing Cardiac: + chest pain (non-cardiac, from left rib fracture), No edema Abdomen: No pain, No nausea, No vomiting Male : No problem reported Psychiatric: No depression symptoms, No anxiety Allergies Coded Allergies: Codeine (Verified Adverse Reaction, Unknown, "FEEL LIKE I'M GOING OUT-- FLOATING", 10/14/17) Medications Current Inpatient Medications Medications (Trade) Dose Ordered Sig/Magdi Route Start Time Stop Time Status Last Admin Dose Admin Enoxaparin Sodium (Lovenox Inj) 30 mg Q12 SQ 10/18/17 21:00 11/17/17 20:59 10/19/17 08:36 30 MG Acetaminophen (Tylenol Tab) 650 mg Q4H PRN PO 10/18/17 16:15 11/17/17 16:14 10/19/17 02:18 650 MG Magnesium Hydroxide (Milk Of Magnesia Susp) 30 ml Q6H PRN PO 10/18/17 16:15 11/17/17 16:14 Polyethylene (Miralax Powder Packet) 17 gm DAILY PRN PO 10/18/17 16:45 11/17/17 16:44 Ondansetron HCl (Zofran Inj) 4 mg Q6H PRN IV 10/18/17 16:15 11/17/17 16:14 Zolpidem Tartrate (Ambien Tab) 5 mg HSZ PRN PO 10/18/17 16:15 11/17/17 16:14 Insulin Aspart (novoLOG ASPART) SLIDING SCALE If C... ACHS SC 10/18/17 16:30 11/17/17 16:29 10/18/17 17:26 4 UNITS Glucose (Glucose 40% Gel) 15-30 GRAMS 15 GRAMS... UD PRN PO 10/18/17 16:15 11/17/17 16:14 Glucose (Glucose Chew Tab) 4-8 Tablets 4 Tabl... UD PRN PO 10/18/17 16:15 11/17/17 16:14 Dextrose (Dextrose 50% 50ML Syringe) 25-50ML 25ML FOR ... UD PRN IV 10/18/17 16:15 11/17/17 16:14 Glucagon (Glucagon Inj) 1 mg UD PRN SQ 10/18/17 16:15 11/17/17 16:14 Carbohydrates (Carbohydrates For Hypoglycemia) 15-30 GRAMS 15 grams if BSG 54-69... UD PRN PO 10/18/17 16:15 11/17/17 16:14 Aspirin (Ecotrin Tab) 81 mg DAILY PO 10/19/17 09:00 11/18/17 08:59 10/19/17 08:32 81 MG Carvedilol (Coreg Tab) 12.5 mg BID PO 10/18/17 21:00 11/17/17 20:59 10/19/17 08:32 12.5 MG EZETIMIBE (Zetia Tab) 10 mg DAILY PO 10/19/17 09:00 11/18/17 08:59 10/19/17 08:35 10 MG Fentanyl (Duragesic Patch) 12 mcg Q72H TD 10/20/17 09:00 11/03/17 08:59 Furosemide (Lasix Tab) 20 mg DAILY PO 10/19/17 09:00 11/18/17 08:59 10/19/17 08:34 20 MG Gemfibrozil (Lopid Tab) 600 mg BID PO 10/18/17 21:00 11/17/17 20:59 10/19/17 08:34 600 MG Levalbuterol (Xopenex Hfa Inhaler) 2 puffs Q6 PRN INH 10/18/17 16:15 11/17/17 16:14 Lidocaine (Lidoderm Patch 5%) 1 patch DAILY TD 10/19/17 09:00 11/18/17 08:59 10/19/17 06:58 1 PATCH Magnesium Oxide (Mag-Ox Tab) 400 mg DAILY PO 10/19/17 09:00 11/18/17 08:59 10/19/17 08:35 400 MG Nitroglycerin (Nitrostat Tab) 0.4 mg PRN UT 10/18/17 16:15 11/17/17 16:14 Potassium Chloride (Klor-Con Tab) 20 meq DAILY PO 10/19/17 09:00 11/18/17 08:59 10/19/17 08:36 20 MEQ Prednisone (PredniSONE TAB) 10 mg DAILY PO 10/19/17 09:00 11/18/17 08:59 10/19/17 08:34 10 MG Sertraline HCl (Zoloft Tab) 25 mg DAILY PO 10/19/17 09:00 11/18/17 08:59 10/19/17 08:33 25 MG Sucralfate (Carafate Tab) 1 gm PM PO 10/18/17 21:00 11/17/17 20:59 10/18/17 20:42 1 GM Tamsulosin HCl (Flomax Cap) 0.4 mg DAILY PO 10/19/17 09:00 11/18/17 08:59 10/19/17 08:33 0.4 MG Pantoprazole Sodium (Protonix Tab) 40 mg BID PO 10/18/17 21:00 11/17/17 20:59 10/19/17 08:34 40 MG Miscellaneous (Fentanyl Patch Remove & Waste) 1 ea Q3D@0859 N/A 10/20/17 08:59 11/19/17 08:58 Miscellaneous Information (Check Fentanyl Patch Placement) 1 ea QS N/A 10/19/17 00:00 11/18/17 00:00 10/19/17 08:00 1 EA Albuterol/ Ipratropium (Duoneb) 3 ml QIDR INH 10/18/17 20:00 11/17/17 19:59 10/19/17 07:20 3 ML Morphine Sulfate (MoRPHine SULFATE INJ) 4 mg Q4H PRN IV 10/18/17 16:15 11/01/17 16:14 Lorazepam 0.5 mg/ Syringe 1 ml @ 0.5 mls/min DAILY PRN IV 10/18/17 16:15 11/17/17 16:14 Miscellaneous (Remove Lidoderm Patch) 1 ea DAILY@21 N/A 10/18/17 21:00 11/17/17 20:59 10/18/17 20:41 1 EA Miscellaneous Information (Order Awaiting Action) 1 ea QS N/A 10/19/17 00:00 11/18/17 00:00 Physical Exam Date Time Temp Pulse Resp B/P (MAP) Pulse Ox O2 Delivery O2 Flow Rate FiO2 10/19/17 07:49 Nasal Cannula 3.0 10/19/17 07:31 36.5 66 22 143/74 (97) 95 Nasal Cannula 3.0 10/19/17 07:20 72 16 95 Nasal Cannula 3.0 10/19/17 00:00 36.4 67 20 111/62 (78) 95 CPAP 10/18/17 19:42 67 15 97 Nasal Cannula 3.0 10/18/17 15:48 36.6 78 20 143/80 Nasal Cannula 3.0 10/18/17 15:48 Nasal Cannula 3.0 10/18/17 15:09 36.6 78 20 143/80 (101) 96 General Appearance: WD/WN, no apparent distress ENT: hearing grossly normal Neck: supple, no JVD Respiratory: no respiratory distress, no accessory muscle use, + decreased breath sounds Cardiovascular: regular rate, rhythm, no edema, + normal peripheral pulses Abdomen: normal bowel sounds, non tender, + distended (obesely distended) Musculoskeletal: pertinent finding (left rib pain) Neurologic/Psychiatric: alert, normal mood/affect, oriented x 3 Laboratory Results Last 24 Hours Test 10/18/17 16:22 10/18/17 20:30 10/19/17 09:03 Bedside Glucose 111 mg/dl 128 mg/dl 293 mg/dl Assessment & Plan Palliative Performance Scale: 70 % Problem list: Left rib pain Weakness Hemoptysis- resolved for now Small cell lung carcinoma, metastatic Goals of care POLST Palliative care recs: -Discussed with patient. He DOES want to pursue chemo/radiation therapy. -His goal is to prolong his life, but as comfortably as possible. He is realistic in the sense that if treatment does not work or he is unable to tolerate, he would likely forego any further treatment. -Patient is adamant that he wants to be a DO NOT RESUSCITATE. HE would eventually be amenable to hospice services, as he is familiar with them from when his was on hospice. -Continue fentanyl patch and lidoderm patch for his rib fracture. He is comfortable with his current pain rating. -POLST form completed as follows: DNR, limited additional interventions, abx if life can be prolonged, trial period of IVF, NO FEEDING TUBE. Additional orders: "Trial of treatment, including abx, if it's going to help. If no hope of meaningful recovery, make me comfortable." -Plan is for patient to move in with his daughter/IFTIKHAR Nelson. I left my card for her to call me when she arrives this evening. We can discuss options for home care. Hospice is typically not offered until after chemotherapy and radiation, but he could start with home health and transition when time. Thank you kindly for this consult. I will follow as needed. Total time spent 75 minutes with >50% of time spent at bedside with patient and family counseling and discussing goals of care, as well as collaborating with providers to coordinate care.
--- NOTE | 2017-10-19 09:19 | Radiation Oncology Follow-Up ---
Radiation Oncology Follow-Up Date of Visit Oct 19, 2017. Reason For Visit Inpatient evaluation for hemoptysis Diagnosis (1) Small cell carcinoma of upper lobe of right lung Status: Acute Stage: IV Permanent Comment: Hospital admission for shortness of breath September 28, 2017 CT revealing a right upper lobe lung mass Status post bronchoscopy and biopsy October 02, 2017 Small cell carcinoma PET/CT October 15, 2017 Metastatic disease within the chest as well as liver Last Edited By: Norma Ocasio on Oct 19, 2017 09:08 History of Present Illness Mr. Theodore is an 81-year-old gentleman who recently presented with shortness of breath and was found to have a lung mass on follow-up imaging studies. 10/01/2017 --- chest x-ray --- IMPRESSION: 1. Cardiomegaly without overt pulmonary edema. 2. Linear subsegmental bibasilar and right perihilar densities suggest atelectasis/scarring with elevation of the right hemidiaphragm. 3. Prominence of the right paratracheal tissues of unknown clinical significance. 10/01/2017 --- CT of chest ---IMPRESSION: 1. Right hilar masslike process measuring 4.0 x 3.5 cm creating occlusion of the proximal right upper lobe bronchus. 2. Secondary partial right upper lobe atelectatic change. 3. Development of at least 2 mid mediastinal nodes 4. Several hypodensities within the liver associated with fatty infiltration. These are incompletely characterized but were not present on the prior study raising the possibility of metastatic change. 10/01/2017 --- bronchoscopy by Dr. Guzman --- findings include abnormal mucosa with extensive compression at the level of the right mainstem bronchus. Biopsies of the right upper lobe with bronchial washings confirmed small cell lung carcinoma. We are now seeing the patient in consultation to discuss role of radiation therapy. Interim History Mr. Theodore had been seen in our office on October 12, 2017. We discussed radiation therapy to the chest. A PET scan was ordered to evaluate for metastatic disease.IMPRESSION: 1. FDG avid right upper lobe mass which occludes the right upper lobe bronchus consistent with bronchogenic carcinoma. Multiple FDG avid metastases, including right paratracheal lai metastases, a pericardial metastasis, at least one (and several possible additional) hepatic metastasis and multiple soft tissue masses within the right shoulder and left abdomen which are consistent with a neoplastic process and likely reflect metastatic disease. 2. Mild focal FDG uptake within the inferior right gluteal musculature which is nonspecific. A metastatic focus cannot be excluded. 3. Small focus of mild FDG uptake within the posterior medial left iliac bone which could be degenerative or metastatic. 4. 4 cm infrarenal abdominal aortic aneurysm. No rupture. Sunday morning he had brought up phlegm that was dark in color. He is color blind and cannot see red. He asked his daughter to look at the phlegm that he had brought up that was in the garbage can. She stated this was blood. He had an appointment the next day with Dr. Qiu. The hemoptysis was discussed and he was admitted for further evaluation and treatment. This morning he had a treatment from respiratory therapy. The therapist told him that the phlegm had old blood in the sputum. He is short of breath but this is unchanged from previous. He has pain in his left lateral ribs from a fracture. Our office was consulted to evaluate for emergent radiation for hemoptysis. Allergies Coded Allergies: Codeine (Verified Adverse Reaction, Unknown, "FEEL LIKE I'M GOING OUT-- FLOATING", 10/14/17) Home Medications Scheduled Albuterol Sulf (Proventil 0.083% 2.5MG/3ML), 2.5 MG INH QID Aspirin (Aspirin Ec), 81 MG PO DAILY Carvedilol (Coreg), 12.5 MG PO BID Esomeprazole Magnesium (Nexium), 40 MG PO BID Ezetimibe (Zetia), 10 MG PO DAILY Fentanyl (Fentanyl), 12 MCG TOP [id number] Qllsexfsqxe-Xlrbsiwphtli-Xasdk (Trelegy Ellipta 100-62.5-25 Mcg/INH), 1 PUFF INH DAILY Furosemide (Lasix), 20 MG PO DAILY Gemfibrozil (Lopid), 600 MG PO BID Ipratropium Cherry Log (Atrovent 0.02% Soln), 2.5 ML INH QID Linagliptin (Tradjenta), 5 MG PO DAILY Magnesium Oxide (Mag-Ox), 400 MG PO DAILY Metformin Hcl (Glucophage), 1,000 MG PO BID Nitroglycerin (Nitrostat), 0.4 MG UT PRN Potassium Chloride (Klor-Con M20), 20 MEQ PEG DAILY Prednisone (Prednisone), 10 MG PO DAILY Sertraline (Zoloft), 1 TAB PO DAILY Sucralfate (Sucralfate), 1 GM PO PM Tamsulosin Hcl (Flomax), 0.4 MG PO DAILY Scheduled PRN Levalbuterol Tartrate (Levalbuterol Tartrate Hfa), 2 INHA PO Q6 PRN for COPD Lidocaine (Lidocaine), 1 PATCH TD DAILY PRN for Pain Oxycodone Hcl (Oxycontin), 15 MG PO Q6 PRN for Pain Review of Systems Additional Notes: Review of Systems Extremities: Within Normal Limits: Yes Hx Falls: No Swelling in Legs: No Hx Deep Vein Thrombosis: No Pain in Legs while Walking: No Head: Headaches: No Dizziness: No Eyes: Within Normal Limits: Yes Hx Cataracts: Yes (Removed ) Hx Diplopia: No Hx Glaucoma: No Wear Glasses: Yes Ear/Hearing: Ear Side: Bilateral Hearing Ability: Hard of Hearing Hearing Aid: None Hearing Aid(s) Present: No Ear/Hearing Comment: recently lost his hearing aid Gastrointestinal: Gastrointestinal: Constipation, Reflux (GERD) Usual Bowel Pattern: 2-3 times every AM Use of Laxatives: Yes Use Of Enemas: No Edema: Present?: No Location Body Site Modifier: Bilateral Urinary: Symptoms: Nocturia, Frequency Comments: ncoturia many times , has trouble starting his stream , Respiratory: Symptoms: COPD, Sleep Apnea, SOB Oxygen Flow Rate: 3.0 liters NC all the time Sputum Character: none Comments: wears CPAP at night , can`t walk too far due to SOB Psychological: Symptoms: Calm Skin: Within Normal Limits: No Alteration and Location: " thin skin , dark skin on left arm " Nutrition: Involuntary Weight Loss (lbs): 25 What Period of Time: 3 weeks , regaining the weight now Inability To Eat Due To: Poor Appetite Home Diet: Regular Inability To Food Shop/Cook: " lost weight , because he could not eat due to SOB " Anyone Available To Assist: Yes Comments: He completed a distress management report and answered "no" to all questions. Physical Exam Vital Signs Date Time Temp Pulse Resp B/P (MAP) Pulse Ox O2 Delivery O2 Flow Rate FiO2 10/19/17 07:49 Nasal Cannula 3.0 10/19/17 07:31 36.5 66 22 143/74 (97) 95 Nasal Cannula 3.0 10/19/17 07:20 72 16 95 Nasal Cannula 3.0 10/19/17 00:00 36.4 67 20 111/62 (78) 95 CPAP 10/18/17 19:42 67 15 97 Nasal Cannula 3.0 10/18/17 15:48 36.6 78 20 143/80 Nasal Cannula 3.0 10/18/17 15:48 Nasal Cannula 3.0 10/18/17 15:09 36.6 78 20 143/80 (101) 96 ECOG Performance Status: 2 General Appearance: no apparent distress Eyes: normal inspection, EOMI ENT: normal ENT inspection, hearing grossly normal Neck: no adenopathy, thyroid normal Respiratory/Chest: no respiratory distress, no accessory muscle use, + decreased breath sounds Cardiovascular: regular rate, rhythm, no gallop, no murmur Extremities: no pedal edema Neurologic/Psychiatric: no motor/sensory deficits, alert, normal mood/affect Skin: warm/dry Pain Management Patient Reports Pain: Yes Side: Left Pain Location: Ribs Patient Preferred Pain Scale: 0 - 10 Initial Pain Intensity: 2.5 Level of Consciousness: Spontaneously Alert Relief Measures: Medication - Oral Pain Intervention: Refuses Pain Medication Pain Management Plan Pain management through hospitalist. Laboratory Laboratory Results: were reviewed, and pertinent findings noted below Laboratory Comments: Test 10/19/17 09:03 Bedside Glucose 293 mg/dl (70-99) Hemoglobin 10.8 on 10/18/2017. Slight decrease from 11.2 on 10/14/2017 Pathology Pathology Results: were reviewed, and pertinent findings noted in HPI Imaging Imaging Studies: were reviewed, and pertinent findings noted below, and pertinent findings noted in HPI Imaging Comments CHEST 2 VIEWS ROUTINE CLINICAL HISTORY: J44.9, C34.90 hemoptysis COMPARISON STUDY: 10/14/2017 FINDINGS: Unchanging bibasilar like atelectatic change. Slight improvement left base. Distinct fullness of the right para mediastinal border unchanged from the prior exam. This is consistent with the patient's produces described mass at that site. Unchanging atelectatic changes right pulmonary apex. No evidence for pneumothorax. IMPRESSION: Stable examination of the chest with no major change from the prior study. No significant pneumothorax. Unchanging to slightly improved basilar atelectatic atelectasis. Assessment & Plan The patient had been scheduled for an MRI of the brain as an outpatient through our office. That was to be performed today. Since he is an inpatient that has been canceled. Would defer ordering of the MRI to the hospitalist. He has been scheduled for CT simulation on Sunday at our office. He is currently not acutely bleeding. We will follow the electronic medical record and if he is still an inpatient on Sunday will plan to bring him down. If he has returned home he should be advised to keep his scheduled appointment for CT simulation. Assessment & Plan (Attending) This patient has recently developed hemoptysis which has appeared to stabilized. He was seen yesterday afternoon by Dr. Qiu and admitted. In discussion with Dr. Qiu he is admitted for failure to thrive and pain and difficulty breathing but not for his hemoptysis. The patient was seen recently by radiation oncology, Dr. Dow, who is planning on discussing simulation next week with consideration of palliative radiation. He will coordinate this treatment if appropriate with his referring physicians. At this time no emergent simulation or treatment will be instituted. Thank you for allowing us to participate in the care of this patient. This chart was completed in part utilizing [employer] Speech Voice Recognition software. Attempts were made to minimize the grammatical errors, random word insertions, pronoun errors and incomplete sentences. Any formal questions or concerns about the content, text or information contained within the body of this dictation should be directly addressed to the provider for clarification. Roddy Esquivel MD Department of Radiation Oncology [facility] and [facility] Total Time In Follow-Up I spent 20 minutes speaking to the patient in performing examination. I spent 15 minutes reviewing information and completing this note. AK Total Time (Attending) In Follow-Up I spent 10 minutes in evaluation and discussion with Mr. Theodore and 5 minutes reviewing his chart and in preparation of this document. ANIRUDH Copy To Jamarcus Montgomery M.D.; Raj Shi D.O.; Murali Qiu MD
--- NOTE | 2017-10-19 09:24 | ONCOLOGY CONSULTATION ---
DATE OF CONSULTATION: 10/19/2017 MEDICAL ONCOLOGY CONSULTATION REASON FOR CONSULTATION: Extensive stage small cell lung cancer. HISTORY OF PRESENT ILLNESS: Renzo is a pleasant morbidly obese 82-year-old gentleman who was admitted to [facility] on 10/18/2017 with acute onset shortness of breath, hemoptysis and uncontrolled pain. Patient was diagnosed with extensive-stage small cell lung cancer via biopsy on 10/02/2017. There is evidence of hepatic metastatic disease on his most recent PET scan which I will describe later. Over the past several weeks though Mr. Theodore has been struggling with occasional hemoptysis. He is currently oxygen dependent and actually broke a rib on the left side, putting on his sock, about 1 week ago. He initially underwent a CT scan which revealed a right upper lobe mass which was occlusive as well as multiple metastases involving the paratracheal, pericardial and at least 1 hepatic met. He has several comorbid issues including oxygen-dependent COPD and coronary artery disease. PET scan performed on 10/17/2017, again reveals FDG avid right upper lobe mass which occludes the right upper lobe bronchus and multiple FDG avid metastases including right paratracheal and pericardial mets. Additionally, multiple soft tissue masses as well as a hepatic metastasis is also seen. Mr. Theodore was supposed to see Dr. Rick in outpatient consult and undergo MRI of the brain. Presently at bedside, his main issue is that of a left-sided chest wall pain, again, attributable to recently suffered rib fracture. Primary service requesting continued care in this very pleasant gentleman who will be carefully considered for salvage chemotherapy. PAST MEDICAL HISTORY: Again, significant for [id number] respiratory failure. COPD, diabetes mellitus type 2, left rib fracture, extensive stage small cell lung cancer and previous pneumonia. MEDICATIONS: Prior to admission include Flomax 0.4 mg p.o. daily, Sucralfate 1 gram p.o. daily, Zoloft 50 mg p.o. daily, prednisone 10 mg p.o. every day, potassium chloride 20 mEq p.o. daily, nitroglycerin 0.4 mg sublingual p.r.n., metformin 1000 mg p.o. b.i.d., magnesium oxide 400 mg p.o. daily, Tradjenta 5 mg p.o. daily. Atrovent 0.02% solution inhaled q.i.d., Lopid 600 mg p.o. b.i.d., Lasix 20 mg p.o. daily, fluticasone 1 puff inhaled daily, fentanyl 12 mcg topically q. 72 hours, Zetia 10 mg p.o. daily, Nexium 40 mg p.o. b.i.d., Coreg 12.5 mg p.o. b.i.d., aspirin 81 mg p.o. daily, albuterol 2.5 mg inhaled q.i.d. ALLERGIES: CODEINE. 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 Lives independently in [place]. He is a [id number] smoker, quitting in the late , a nondrinker. FAMILY HISTORY: Mother is still living. Father of complications of metastatic colorectal cancer. REVIEW OF SYSTEMS: As per HPI most notably for weight loss about 25 pounds, generalized weakness, recent rib fracture, shortness of breath, dyspnea and hemoptysis. GENERAL: Denies fevers, chills or sweats. SKIN: No rashes or lesions. No history of dermatoses. HEENT: Denies headaches, lightheadedness or dizziness. 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 No sinus symptoms, sore throat or dysphagia presently. LYMPH: No history of lymphoproliferative disease. CARDIAC: Positive history of coronary artery disease. No current angina or palpitations. PULMONARY: Positive for oxygen-dependent COPD and the remainder of pulmonary system as per HPI. GASTROINTESTINAL: Negative for abdominal pain, nausea, vomiting. He does struggle with constipation on chronic opioid therapy. No hematochezia, melena or carie rectal bleeding. GENITOURINARY: Positive for BPH. No current hematuria, dysuria, urinary incontinence. MUSCULOSKELETAL: Suffers from osteoarthritis and again left-sided chest wall pain attributable to rib fracture. ENDOCRINE: Positive for diabetes mellitus. NEUROLOGIC: Negative for seizure, stroke, or migraine headache. HEMATOLOGIC: Negative for anemia, thrombophilia or bleeding diathesis. PHYSICAL EXAMINATION: GENERAL: Mr. Theodore is a pickwickian 82-year-old gentleman. Awake, alert and appropriate, in no acute distress. VITAL SIGNS: Temperature 36.5, pulse 66, respiratory rate 22, blood pressure 143/74. SKIN: Warm, dry, noncyanotic without petechia, rash or ecchymosis. HEENT: Atraumatic, normocephalic. Eyes: PERRLA, EOMI. Sclerae nonicteric. No conjunctival injection. Nares patent without rhinorrhea or discharge. Throat clear. Tongue midline. Patient is edentulous. NECK: Supple. LYMPH: No cervical or supraclavicular or axillary lymph nodes palpable. HEART: Regular rate and rhythm. LUNGS: Distant breath sounds. Few scattered rhonchi. ABDOMEN: Obese, soft, nontender, nondistended, without palpable hepatosplenomegaly. EXTREMITIES: Musculoskeletal strength and pulses are equal in all 4 quadrants. No clubbing, cyanosis or edema otherwise. NEUROLOGICAL: He is awake, alert and oriented x3. Cranial nerves are grossly intact. LABORATORY DATA: WBC count 7850, hemoglobin 10.8, platelet count 202,000. Sodium 138, potassium 4.8, chloride 104, carbon dioxide 25, BUN 27, creatinine 1.15. These results were from 10/14/2017. RADIOGRAPHIC DATA: PET scan performed on 10/17/2017 as described in the HPI most notably for right upper lobe dominant mass with partial occlusion of the right upper lobe bronchus, multiple regional lymph nodes including pericardial METS and several hepatic mets as well as soft tissue masses within the right shoulder and left abdomen consistent with metastatic disease. IMPRESSION: 1. Hemoptysis. 2. Anorexia/weight loss. 3. Chronic anemia. 4. Extensive stage small cell lung cancer. 5. Oxygen-dependent chronic obstructive pulmonary disease. PLAN: I had the pleasure of seeing Mr. Theodore today at bedside. He was scheduled to see Dr. Rick for outpatient consultation regarding new diagnosis of extensive stage small cell lung cancer. Reviewed clinical notes from the primary team and apparently a conversation between the patient and daughter suggest that he may opt for palliative route. However, Mr. Theodore made it clear he does want to discuss possibility of salvage chemotherapy with Dr. Rick. We should proceed with an MRI of the brain while he is in house. At some point he will require prophylactic whole brain radiation if he opts to pursue treatment. Traditionally, combination etoposide and cisplatin is the regimen of choice. I will defer to Dr. Rick to decide on pursuing salvage chemotherapy. Without further intervention, Mr. Theodore' life expectancy is probably 3 to possibly 6 months. Questions were answered to the patient's satisfaction. We will notify Dr. Rick of Mr. Theodore' admission to hospital and make arrangements for outpatient followup thereafter. Thank you for allowing us to participate in his care. AMENA
[2017-10-19] MEDS ORDERED: INSULIN ASPART 100 UNITS/ML 3 ML PEN SC ONE (09:30)
[2017-10-19] MEDS: INSULIN ASPART 100 UNITS/ML 3 ML PEN SC SCH ×4 (09:38→20:18)
--- NOTE | 2017-10-19 16:08 | Progress Note ---
Subjective Date of Service: Oct 19, 2017. Subjective Pt evaluation today including: conversation w/ patient, conversation w/ family , physical exam, chart review, lab review, review of inpatient medication list generally feeling better than when he came in breathing is OK L back/flank/chest pain in area of broken rib the same no other new complaints otm consultant input greatly apprecaited Problem List Medical Problems: (1) Left rib fracture Status: Acute (2) Metastatic disease Status: Acute (3) Small cell lung cancer Status: Acute Review of Systems all other ROS otherwise negative except for as above Objective Vital Signs Date Time Temp Pulse Resp B/P (MAP) Pulse Ox O2 Delivery O2 Flow Rate FiO2 10/19/17 16:01 36.6 79 20 145/76 (99) 95 Room Air 10/19/17 15:37 78 16 94 Nasal Cannula 3.0 10/19/17 11:13 76 16 96 Nasal Cannula 3.0 10/19/17 07:49 Nasal Cannula 3.0 10/19/17 07:31 36.5 66 22 143/74 (97) 95 Nasal Cannula 3.0 10/19/17 07:20 72 16 95 Nasal Cannula 3.0 10/19/17 00:00 36.4 67 20 111/62 (78) 95 CPAP 10/18/17 19:42 67 15 97 Nasal Cannula 3.0 Physical Exam General Appearance: no apparent distress Eyes: EOMI ENT: hearing grossly normal Neck: trachea midline Respiratory/Chest: no respiratory distress, no accessory muscle use 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 Small cell lung cancer with metastases -oncology input ongoing -pain control overall reasonable - continue current plan. follow - since pain being bad was part of reason for admission and ongoing management of his situation inpt, may need to escalate regimen - will have to increase activity and follow -palliative input appreciated as well COPD, chronic hypoxic respiratory failure -Continue duonebs -O2 per protocol. Patient is on 3 L at home. -Continue home prednisone 10 mg every morning -no acute issues noted today Type 2 diabetes -supplemental insulin. overall reasonable control but AM fasting was elevated - add basal HS, follow Hypertension / CAD / hyperlipidemia -Continue home ezetimibe and gemfibrozil 600 mg twice daily -Continue home carvedilol 12.5 twice daily, Nitrostat as needed, aspirin 81 mg daily. -no current sx Edema -Continue furosemide 20 mg daily -Continue home Klor-Con 20 mEq daily GERD -Replaced by Protonix 40 mg twice daily -Continue home sucralfate Depression/anxiety -Continue home sertraline 25 mg daily BPH -Continue Flomax 0.4 mg daily FEN/GI: AHA diet, diabetic diet. No fluids indicated at this time DVT prophylaxis: Lovenox 40 mg every 12 hour CODE STATUS: DNR. was discussed and confirmed with patient at admission. Dispo: MedSurg. anticipate home once pain controlled as long as breathing stable and oncology plan underway
[2017-10-19] MEDS: SUCRALFATE 1 GM TAB PO SCH (20:13)
[2017-10-19] MEDS: INSULIN GLARGINE SOLOSTAR 100 UNITS/ML 3 ML PEN SC SCH (20:18)
[2017-10-20] VITALS (7 sets, daily range): BP systolic 102–121; BP diastolic 66–77; PULSE 67–76; TEMP 36.3–36.6; O2SAT 94–98
[2017-10-20] MEDS: CHECK FENTANYL PATCH PLACEMENT SCH ×3 (00:12→16:10)
[2017-10-20] MEDS: ALBUT/IPRATROP 3MG/0.5MG NEB 3 ML VIAL INH SCH ×4 (07:03→20:00)
[2017-10-20] MEDS: TAMSULOSIN HCL 0.4 MG CAP PO SCH ×2 (08:08→21:35)
[2017-10-20] MEDS: POTASSIUM CHLORIDE 20 MEQ TABCR PO SCH (08:08)
[2017-10-20] MEDS: MAGNESIUM OXIDE 400 MG TAB PO SCH (08:09)
[2017-10-20] MEDS: ASPIRIN 81 MG ECTAB PO SCH (08:09)
[2017-10-20] MEDS: FUROSEMIDE 20 MG TAB PO SCH (08:09)
[2017-10-20] MEDS: SERTRALINE HCL 50 MG TAB PO SCH (08:10)
[2017-10-20] MEDS: EZETIMIBE 10MG TAB PO SCH (08:10)
[2017-10-20] MEDS: GEMFIBROZIL 600 MG TAB PO SCH ×2 (08:10→21:36)
[2017-10-20] MEDS: CARVEDILOL 12.5 MG TAB PO SCH ×2 (08:11→21:35)
[2017-10-20] MEDS: LIDODERM (LIDOCAINE) PATCH 5% TD SCH (08:30)
[2017-10-20] MEDS: FENTANYL 12 MCG/HR TDSY TD SCH (08:30)
[2017-10-20] MEDS: ENOXAPARIN 30 MG/0.3 ML SYR SQ SCH ×2 (08:30→21:33)
[2017-10-20] MEDS: INSULIN ASPART 100 UNITS/ML 3 ML PEN SC SCH ×4 (08:36→21:00)
[2017-10-20] MEDS: FENTANYL PATCH REMOVE & WASTE SCH (08:36)
[2017-10-20] MEDS: PANTOprazole SOD 40 MG TAB PO SCH ×2 (10:05→21:36)
[2017-10-20] MEDS ORDERED: LORAZEPAM INJ 1 MG in SYRINGE 0.5 ML IV PRN (10:30)
[2017-10-20] MEDS ORDERED: LORAZEPAM INJ 1 MG in SYRINGE 0.5 ML IV ONE (10:30)
--- NOTE | 2017-10-20 11:29 | DIAGNOSTIC IMAGING REPORT ---
MRI OF THE BRAIN WITHOUT AND WITH IV CONTRAST CLINICAL HISTORY: Metastatic lung carcinoma. COMPARISON STUDY: No previous studies for comparison. TECHNIQUE: MRI of the brain was performed from the vertex to the skull base utilizing various T1 and T2 weighted sequences. Following the IV administration of 10.5 mL of Gadavist contrast, additional enhanced images were obtained. FINDINGS: Sagittal T1, axial diffusion, proton density and T2 weighted axial, coronal FLAIR, and pre and post axial T1-weighted images were acquired. These were supplemented with post gadolinium coronal T1 weighted images. No intra or extra-axial mass lesions are visualized. Axial diffusion-weighted images reveal no evidence of acute or subacute infarction. There is no evidence of ventricular dilatation. Proton density T2-weighted and FLAIR images reveal scattered foci of increased T2 signal within the white matter, likely on a small vessel basis. There is left anterior frontal lobe encephalomalacia. There are no abnormal flow voids. There is no evidence of pathologic enhancement. IMPRESSION: 1. No acute intracranial findings 2. No evidence of acute or subacute infarction 3. Left anterior frontal lobe encephalomalacia, likely secondary to a remote infarct or remote trauma 4. No evidence of intracranial metastasis Electronically signed by: Darian Lee M.D. 10/20/2017 11:27 AM Dictated Date/Time: 10/20/2017 11:23 AM
[2017-10-20] MEDS ORDERED: GADAVIST IV PRN (11:30)
--- NOTE | 2017-10-20 12:51 | Hematology/Oncology Prog Note ---
Hematology/Onc Progress Note Date of Service Oct 20, 2017. Diagnoses Extensive stage small cell lung cancer with bone metastases Shortness of breath and hemoptysis Medications Medications Administered Medications (Trade) Dose Ordered Sig/Magdi Route Start Time Stop Time Status Last Admin Dose Admin Enoxaparin Sodium (Lovenox Inj) 30 mg Q12 SQ 10/18/17 21:00 11/17/17 20:59 10/20/17 08:30 30 MG Acetaminophen (Tylenol Tab) 650 mg Q4H PRN PO 10/18/17 16:15 11/17/17 16:14 10/19/17 02:18 650 MG Insulin Aspart (novoLOG ASPART) SLIDING SCALE If C... ACHS SC 10/18/17 16:30 11/17/17 16:29 10/20/17 08:36 6 UNITS Aspirin (Ecotrin Tab) 81 mg DAILY PO 10/19/17 09:00 11/18/17 08:59 10/20/17 08:09 81 MG Carvedilol (Coreg Tab) 12.5 mg BID PO 10/18/17 21:00 11/17/17 20:59 10/20/17 08:11 12.5 MG EZETIMIBE (Zetia Tab) 10 mg DAILY PO 10/19/17 09:00 11/18/17 08:59 10/20/17 08:10 10 MG Fentanyl (Duragesic Patch) 12 mcg Q72H TD 10/20/17 09:00 11/03/17 08:59 10/20/17 08:30 12 MCG Furosemide (Lasix Tab) 20 mg DAILY PO 10/19/17 09:00 11/18/17 08:59 10/20/17 08:09 20 MG Gemfibrozil (Lopid Tab) 600 mg BID PO 10/18/17 21:00 11/17/17 20:59 10/20/17 08:10 600 MG Lidocaine (Lidoderm Patch 5%) 1 patch DAILY TD 10/19/17 09:00 11/18/17 08:59 10/20/17 08:30 1 PATCH Magnesium Oxide (Mag-Ox Tab) 400 mg DAILY PO 10/19/17 09:00 11/18/17 08:59 10/20/17 08:09 400 MG Potassium Chloride (Klor-Con Tab) 20 meq DAILY PO 10/19/17 09:00 11/18/17 08:59 10/20/17 08:08 20 MEQ Prednisone (PredniSONE TAB) 10 mg DAILY PO 10/19/17 09:00 11/18/17 08:59 10/20/17 08:31 10 MG Sertraline HCl (Zoloft Tab) 25 mg DAILY PO 10/19/17 09:00 11/18/17 08:59 10/20/17 08:10 25 MG Sucralfate (Carafate Tab) 1 gm PM PO 10/18/17 21:00 11/17/17 20:59 10/19/17 20:13 1 GM Tamsulosin HCl (Flomax Cap) 0.4 mg DAILY PO 10/19/17 09:00 11/18/17 08:59 10/20/17 08:08 0.4 MG Pantoprazole Sodium (Protonix Tab) 40 mg BID PO 10/18/17 21:00 11/17/17 20:59 10/20/17 10:05 40 MG Miscellaneous (Fentanyl Patch Remove & Waste) 1 ea Q3D@0859 N/A 10/20/17 08:59 11/19/17 08:58 10/20/17 08:36 1 EA Miscellaneous Information (Check Fentanyl Patch Placement) 1 ea QS N/A 10/19/17 00:00 11/18/17 00:00 10/20/17 08:38 1 EA Albuterol/ Ipratropium (Duoneb) 3 ml QIDR INH 10/18/17 20:00 11/17/17 19:59 10/20/17 07:03 3 ML Miscellaneous (Remove Lidoderm Patch) 1 ea DAILY@21 N/A 10/18/17 21:00 11/17/17 20:59 10/19/17 20:15 1 EA Insulin Aspart (novoLOG ASPART) 5 units ONE ONCE SC 10/19/17 09:30 10/19/17 09:31 DC 10/19/17 09:46 5 UNITS Insulin Glargine (Lantus Solostar Pen) 10 units HS SC 10/19/17 21:00 11/18/17 20:59 10/19/17 20:18 10 UNITS Lorazepam 1 mg/ Syringe 1 ml @ 0.5 mls/min ONE ONCE IV 10/20/17 10:30 10/20/17 10:31 DC 10/20/17 10:26 0.5 MLS/MIN Subjective Mr. Theodore is sitting up in bed today. He is visibly short of breath but is able to converse and looks comfortable. We spent a while discussing his performance status over the last few weeks. In the last month or two, he's been mostly limited to his recliner. He gets up to clear dishes and can, with effort , make it up the stairs to shower. He takes cat naps during the day. Overall, however, he spends essentially the entire day in the bed. He has not had further hemoptysis since admission. He has pain at his rib metastasis, but rates it around a 3. Review of Systems: Constitutional: + weakness, + fatigue ENT: + problem reported (hoarseness) Respiratory: + cough, + shortness of breath, No hemoptysis Cardiovascular: + chest pain (rib pain) Abdomen: No pain, No nausea, No vomiting Neurologic: No weakness Heme: No abnormal bleeding/bruising, No night sweats Vital Signs Vital Signs Past 12 Hours Date Time Temp Pulse Resp B/P (MAP) Pulse Ox O2 Delivery O2 Flow Rate FiO2 10/20/17 11:34 36.3 74 20 102/67 (79) 97 Nasal Cannula 3.0 10/20/17 08:00 Nasal Cannula 3.0 10/20/17 07:40 36.6 67 19 121/75 (90) 96 Nasal Cannula 3.0 10/20/17 07:04 68 16 98 Nasal Cannula 3.0 Physical Exam Constitutional: General Apperance: obese Level of Distress: chronically ill Psychiatric: Mental Status: active & alert Orientation: oriented except where noted Lungs: Respiratory Effort: dyspneic Auscuitation: breath sounds normal Cardiovascular: Heart Auscultation: RRR Abdomen: Inspection & Palpation: soft, no tenderness, guarding & rebound Extremities: no edema Laboratory Last 24 Hours Test 10/19/17 16:39 10/19/17 20:14 10/20/17 08:07 10/20/17 12:12 Bedside Glucose 200 mg/dl 199 mg/dl 141 mg/dl 122 mg/dl Assessment & Plan Mr. Dang had a long conversation about his disease and his performance status. He is on the borderline between ECOG 2 and ECOG 3. The latter would preclude chemotherapy entirely. Overall, factoring in his general weakness, his lung disease, and the poor prognosis of his disease generally, I think he would be better served by hospice care. He has already decided to be DNR/DNI. He also watched his of lung cancer and is concerned about chemotherapy, given what she went through. We discussed the principles of hospice care and he was agreeable to this approach. I would reach out to Dr. Dow from radiation oncology to discuss the role of some palliative RT, mostly to prevent further hemoptysis and to possibly improve his breathing. Otherwise, I would work with palliative care to make arrangements for home hospice, either at his home or with his daughter.
--- NOTE | 2017-10-20 17:35 | Family Medicine Progress Note ---
Progress Note Date of Service Oct 20, 2017. Subjective Pt evaluation today including: conversation w/ patient, physical exam, chart review, lab review, review of inpatient medication list Pain: Left sided rib pain reported PO Intake: Tolerating PO intake Voiding: no voiding problems Mr. Theodore reports his breathing is about the same. He states his left rib pain is a manageable 4/10, and improves greatly with the lidoderm and fentanyl patch. He states he prefers not to take any stronger oral medications. He denies chest pain, lightheadedness, and states he still has a slight cough but is not bringing up sputum. Constitutional: No fever, No chills Respiratory: + cough, + shortness of breath, No sputum, No wheezing Cardiovascular: No chest pain Abdomen: No pain, No nausea, No vomiting Musculoskeletal: + problem reported (left sided rib pain ) All Other Systems: Reviewed and Negative Medications Current Inpatient Medications Medications (Trade) Dose Ordered Sig/Magdi Route Start Time Stop Time Status Last Admin Dose Admin Enoxaparin Sodium (Lovenox Inj) 30 mg Q12 SQ 10/18/17 21:00 11/17/17 20:59 10/20/17 08:30 30 MG Acetaminophen (Tylenol Tab) 650 mg Q4H PRN PO 10/18/17 16:15 11/17/17 16:14 10/19/17 02:18 650 MG Magnesium Hydroxide (Milk Of Magnesia Susp) 30 ml Q6H PRN PO 10/18/17 16:15 11/17/17 16:14 Polyethylene (Miralax Powder Packet) 17 gm DAILY PRN PO 10/18/17 16:45 11/17/17 16:44 Ondansetron HCl (Zofran Inj) 4 mg Q6H PRN IV 10/18/17 16:15 11/17/17 16:14 Zolpidem Tartrate (Ambien Tab) 5 mg HSZ PRN PO 10/18/17 16:15 11/17/17 16:14 Insulin Aspart (novoLOG ASPART) SLIDING SCALE If C... ACHS SC 10/18/17 16:30 11/17/17 16:29 10/20/17 13:06 7 UNITS Glucose (Glucose 40% Gel) 15-30 GRAMS 15 GRAMS... UD PRN PO 10/18/17 16:15 11/17/17 16:14 Glucose (Glucose Chew Tab) 4-8 Tablets 4 Tabl... UD PRN PO 10/18/17 16:15 11/17/17 16:14 Dextrose (Dextrose 50% 50ML Syringe) 25-50ML 25ML FOR ... UD PRN IV 10/18/17 16:15 11/17/17 16:14 Glucagon (Glucagon Inj) 1 mg UD PRN SQ 10/18/17 16:15 11/17/17 16:14 Carbohydrates (Carbohydrates For Hypoglycemia) 15-30 GRAMS 15 grams if BSG 54-69... UD PRN PO 10/18/17 16:15 11/17/17 16:14 Aspirin (Ecotrin Tab) 81 mg DAILY PO 10/19/17 09:00 11/18/17 08:59 10/20/17 08:09 81 MG Carvedilol (Coreg Tab) 12.5 mg BID PO 10/18/17 21:00 11/17/17 20:59 10/20/17 08:11 12.5 MG EZETIMIBE (Zetia Tab) 10 mg DAILY PO 10/19/17 09:00 11/18/17 08:59 10/20/17 08:10 10 MG Fentanyl (Duragesic Patch) 12 mcg Q72H TD 10/20/17 09:00 11/03/17 08:59 10/20/17 08:30 12 MCG Furosemide (Lasix Tab) 20 mg DAILY PO 10/19/17 09:00 11/18/17 08:59 10/20/17 08:09 20 MG Gemfibrozil (Lopid Tab) 600 mg BID PO 10/18/17 21:00 11/17/17 20:59 10/20/17 08:10 600 MG Levalbuterol (Xopenex Hfa Inhaler) 2 puffs Q6 PRN INH 10/18/17 16:15 11/17/17 16:14 Lidocaine (Lidoderm Patch 5%) 1 patch DAILY TD 10/19/17 09:00 11/18/17 08:59 10/20/17 08:30 1 PATCH Magnesium Oxide (Mag-Ox Tab) 400 mg DAILY PO 10/19/17 09:00 11/18/17 08:59 10/20/17 08:09 400 MG Nitroglycerin (Nitrostat Tab) 0.4 mg PRN UT 10/18/17 16:15 11/17/17 16:14 Potassium Chloride (Klor-Con Tab) 20 meq DAILY PO 10/19/17 09:00 11/18/17 08:59 10/20/17 08:08 20 MEQ Prednisone (PredniSONE TAB) 10 mg DAILY PO 10/19/17 09:00 11/18/17 08:59 10/20/17 08:31 10 MG Sertraline HCl (Zoloft Tab) 25 mg DAILY PO 10/19/17 09:00 11/18/17 08:59 10/20/17 08:10 25 MG Sucralfate (Carafate Tab) 1 gm PM PO 10/18/17 21:00 11/17/17 20:59 10/19/17 20:13 1 GM Tamsulosin HCl (Flomax Cap) 0.4 mg DAILY PO 10/19/17 09:00 11/18/17 08:59 10/20/17 08:08 0.4 MG Pantoprazole Sodium (Protonix Tab) 40 mg BID PO 10/18/17 21:00 11/17/17 20:59 10/20/17 10:05 40 MG Miscellaneous (Fentanyl Patch Remove & Waste) 1 ea Q3D@0859 N/A 10/20/17 08:59 11/19/17 08:58 10/20/17 08:36 1 EA Miscellaneous Information (Check Fentanyl Patch Placement) 1 ea QS N/A 10/19/17 00:00 11/18/17 00:00 10/20/17 16:10 1 EA Albuterol/ Ipratropium (Duoneb) 3 ml QIDR INH 10/18/17 20:00 11/17/17 19:59 10/20/17 15:56 3 ML Morphine Sulfate (MoRPHine SULFATE INJ) 4 mg Q4H PRN IV 10/18/17 16:15 11/01/17 16:14 Lorazepam 0.5 mg/ Syringe 1 ml @ 0.5 mls/min DAILY PRN IV 10/18/17 16:15 11/17/17 16:14 Miscellaneous (Remove Lidoderm Patch) 1 ea DAILY@21 N/A 10/18/17 21:00 11/17/17 20:59 10/19/17 20:15 1 EA Miscellaneous Information (Order Awaiting Action) 1 ea QS N/A 10/19/17 00:00 11/18/17 00:00 Insulin Glargine (Lantus Solostar Pen) 10 units HS SC 10/19/17 21:00 11/18/17 20:59 10/19/17 20:18 10 UNITS Lorazepam 1 mg/ Syringe 1 ml @ 0.5 mls/min ONE PRN IV 10/20/17 10:30 10/20/17 23:59 Gadobutrol (Gadavist) 10.5 mmol UD PRN IV 10/20/17 11:30 10/24/17 11:29 Objective Vital Signs Date Time Temp Pulse Resp B/P (MAP) Pulse Ox O2 Delivery O2 Flow Rate FiO2 10/20/17 16:04 36.6 76 20 110/77 (88) 94 Nasal Cannula 3.0 10/20/17 15:56 68 16 97 Nasal Cannula 3.0 10/20/17 11:34 36.3 74 20 102/67 (79) 97 Nasal Cannula 3.0 10/20/17 08:00 Nasal Cannula 3.0 10/20/17 07:40 36.6 67 19 121/75 (90) 96 Nasal Cannula 3.0 10/20/17 07:04 68 16 98 Nasal Cannula 3.0 10/20/17 00:05 Nasal Cannula 3.0 10/19/17 23:20 36.6 75 20 136/76 (96) 95 BiPAP 10/19/17 19:01 36.7 73 19 126/79 (95) 94 Room Air 10/19/17 18:51 77 16 96 BiPAP/CPAP 3.0 Physical Exam General Appearance: WD/WN, no apparent distress Respiratory/Chest: lungs clear, normal breath sounds Cardiovascular: regular rate, rhythm, no edema Abdomen: non tender, soft Neurologic/Psychiatric: alert, normal mood/affect, oriented x 3 Laboratory Results Last 24 Hours Test 10/19/17 20:14 10/20/17 08:07 10/20/17 12:12 10/20/17 16:44 Bedside Glucose 199 mg/dl 141 mg/dl 122 mg/dl 187 mg/dl Assessment and Plan Mr. 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 Small cell lung cancer with metastases - oncology input ongoing -> not a candidate for chemotherapy -> pt elected for home hospice after discussion w/Dr. Rick -> may benefit from palliative radiation therapy - f/u w/Dr. Dow on Sunday for CT simulation - pain control improved - continue current plan w/lidoderm and fentanyl patches - morphine 4mg ordered prn but pt prefers not to take this - palliative input appreciated as well - no further episodes of hemoptysis COPD, chronic hypoxic respiratory failure - Continue duonebs - O2 per protocol. Patient is on home dose of 3L - Continue home prednisone 10 mg every morning Type 2 diabetes - 10 units lantus qhs w/SSI - glucose between 128 and 200 Hypertension / CAD / hyperlipidemia - Continue home ezetimibe and gemfibrozil 600 mg twice daily - Continue home carvedilol 12.5 twice daily, Nitrostat as needed, aspirin 81 mg daily. Edema - Continue furosemide 20 mg daily - Continue home Klor-Con 20 mEq daily GERD - Replaced home regimen w/Protonix 40 mg twice daily - Continue home sucralfate Depression/anxiety -Continue home sertraline 25 mg daily BPH -Continue Flomax 0.4 mg daily DVT prophylaxis: Lovenox 40 mg daily CODE STATUS: DNR Dispo: MedSurg - anticipate d/c on Sunday/Sunday once home hospice arranged and pt has seen rad/onc. Case management currently working on arranging home hospice. Patient will be moving in with daughter who has started making arrangements at home. Resident Physician Supervision Note: I interviewed and examined the patient. Discussed with Dr. Sexton and agree with findings and plan as documented in the note. Any exceptions or clarifications are listed here: None Documented By: Ad Chanel feeling ok pain controlled for MRI vitals noted nad breathing unlabored no pallor or icterus hemoptysis, new dx mets lung CA, rib pain from pathologic fracture, sob -stabilizing -MRI brain per oncology recs -work towards home, agree palliative radiation Resident Tracking Resident Involvement: Resident Care Provided Care Provided: Adult [facility] Medicine
[2017-10-20] MEDS: INSULIN GLARGINE SOLOSTAR 100 UNITS/ML 3 ML PEN SC SCH (21:38)
[2017-10-20] MEDS: SUCRALFATE 1 GM TAB PO SCH (21:39)
[2017-10-21] VITALS (10 sets, daily range): BP systolic 111–132; BP diastolic 66–81; PULSE 60–83; TEMP 36.4–37; O2SAT 93–98
[2017-10-21] MEDS: ALBUT/IPRATROP 3MG/0.5MG NEB 3 ML VIAL INH SCH ×4 (07:03→19:01)
--- NOTE | 2017-10-21 07:20 | Family Medicine Progress Note ---
Progress Note Date of Service Oct 21, 2017. Subjective Pt evaluation today including: conversation w/ patient, physical exam, chart review, lab review, review of inpatient medication list Pain: Mild left sided rib pain reported PO Intake: Tolerating PO intake Voiding: no voiding problems Mr. Theodore reports he feels well today. He states his only complaint is he feels as though the back of his throat is scratchy, and that he has been coughing up yellow phlegm. He denies a sore throat, or trouble swallowing. He denies chest pain, and states his breathing is about the same as yesterday. Constitutional: No fever, No chills Respiratory: + cough, + sputum Cardiovascular: No chest pain Abdomen: No pain, No nausea, No vomiting Musculoskeletal: + problem reported (left sided rib pain) All Other Systems: Reviewed and Negative Medications Current Inpatient Medications Medications (Trade) Dose Ordered Sig/Magdi Route Start Time Stop Time Status Last Admin Dose Admin Acetaminophen (Tylenol Tab) 650 mg Q4H PRN PO 10/18/17 16:15 11/17/17 16:14 10/19/17 02:18 650 MG Magnesium Hydroxide (Milk Of Magnesia Susp) 30 ml Q6H PRN PO 10/18/17 16:15 11/17/17 16:14 Polyethylene (Miralax Powder Packet) 17 gm DAILY PRN PO 10/18/17 16:45 11/17/17 16:44 Ondansetron HCl (Zofran Inj) 4 mg Q6H PRN IV 10/18/17 16:15 11/17/17 16:14 Zolpidem Tartrate (Ambien Tab) 5 mg HSZ PRN PO 10/18/17 16:15 11/17/17 16:14 Insulin Aspart (novoLOG ASPART) SLIDING SCALE If C... ACHS SC 10/18/17 16:30 11/17/17 16:29 10/21/17 12:03 9 UNITS Glucose (Glucose 40% Gel) 15-30 GRAMS 15 GRAMS... UD PRN PO 10/18/17 16:15 11/17/17 16:14 Glucose (Glucose Chew Tab) 4-8 Tablets 4 Tabl... UD PRN PO 10/18/17 16:15 11/17/17 16:14 Dextrose (Dextrose 50% 50ML Syringe) 25-50ML 25ML FOR ... UD PRN IV 10/18/17 16:15 11/17/17 16:14 Glucagon (Glucagon Inj) 1 mg UD PRN SQ 10/18/17 16:15 11/17/17 16:14 Carbohydrates (Carbohydrates For Hypoglycemia) 15-30 GRAMS 15 grams if BSG 54-69... UD PRN PO 10/18/17 16:15 11/17/17 16:14 Aspirin (Ecotrin Tab) 81 mg DAILY PO 10/19/17 09:00 11/18/17 08:59 10/21/17 08:05 81 MG Carvedilol (Coreg Tab) 12.5 mg BID PO 10/18/17 21:00 11/17/17 20:59 10/21/17 08:05 12.5 MG EZETIMIBE (Zetia Tab) 10 mg DAILY PO 10/19/17 09:00 11/18/17 08:59 10/21/17 08:07 10 MG Fentanyl (Duragesic Patch) 12 mcg Q72H TD 10/20/17 09:00 11/03/17 08:59 10/20/17 08:30 12 MCG Furosemide (Lasix Tab) 20 mg DAILY PO 10/19/17 09:00 11/18/17 08:59 10/21/17 08:06 20 MG Gemfibrozil (Lopid Tab) 600 mg BID PO 10/18/17 21:00 11/17/17 20:59 10/21/17 08:05 600 MG Levalbuterol (Xopenex Hfa Inhaler) 2 puffs Q6 PRN INH 10/18/17 16:15 11/17/17 16:14 Lidocaine (Lidoderm Patch 5%) 1 patch DAILY TD 10/19/17 09:00 11/18/17 08:59 10/21/17 08:07 1 PATCH Magnesium Oxide (Mag-Ox Tab) 400 mg DAILY PO 10/19/17 09:00 11/18/17 08:59 10/21/17 08:05 400 MG Nitroglycerin (Nitrostat Tab) 0.4 mg PRN UT 10/18/17 16:15 11/17/17 16:14 Potassium Chloride (Klor-Con Tab) 20 meq DAILY PO 10/19/17 09:00 11/18/17 08:59 10/21/17 08:06 20 MEQ Prednisone (PredniSONE TAB) 10 mg DAILY PO 10/19/17 09:00 11/18/17 08:59 10/21/17 08:07 10 MG Sertraline HCl (Zoloft Tab) 25 mg DAILY PO 10/19/17 09:00 11/18/17 08:59 10/21/17 08:06 25 MG Sucralfate (Carafate Tab) 1 gm PM PO 10/18/17 21:00 11/17/17 20:59 10/20/17 21:39 1 GM Tamsulosin HCl (Flomax Cap) 0.4 mg DAILY PO 10/19/17 09:00 11/18/17 08:59 10/21/17 08:06 0.4 MG Pantoprazole Sodium (Protonix Tab) 40 mg BID PO 10/18/17 21:00 11/17/17 20:59 10/21/17 08:06 40 MG Miscellaneous (Fentanyl Patch Remove & Waste) 1 ea Q3D@0859 N/A 10/20/17 08:59 11/19/17 08:58 10/20/17 08:36 1 EA Miscellaneous Information (Check Fentanyl Patch Placement) 1 ea QS N/A 10/19/17 00:00 11/18/17 00:00 10/21/17 08:08 1 EA Albuterol/ Ipratropium (Duoneb) 3 ml QIDR INH 10/18/17 20:00 11/17/17 19:59 10/21/17 11:13 3 ML Morphine Sulfate (MoRPHine SULFATE INJ) 4 mg Q4H PRN IV 10/18/17 16:15 11/01/17 16:14 Lorazepam 0.5 mg/ Syringe 1 ml @ 0.5 mls/min DAILY PRN IV 10/18/17 16:15 11/17/17 16:14 Miscellaneous (Remove Lidoderm Patch) 1 ea DAILY@21 N/A 10/18/17 21:00 11/17/17 20:59 10/20/17 21:34 1 EA Miscellaneous Information (Order Awaiting Action) 1 ea QS N/A 10/19/17 00:00 11/18/17 00:00 Insulin Glargine (Lantus Solostar Pen) 10 units HS SC 10/19/17 21:00 11/18/17 20:59 10/20/17 21:38 10 UNITS Gadobutrol (Gadavist) 10.5 mmol UD PRN IV 10/20/17 11:30 10/24/17 11:29 Enoxaparin Sodium (Lovenox Inj) 40 mg QAM SQ 10/21/17 09:00 11/20/17 08:59 10/21/17 08:08 40 MG Objective Vital Signs Date Time Temp Pulse Resp B/P (MAP) Pulse Ox O2 Delivery O2 Flow Rate FiO2 10/21/17 11:53 36.7 68 21 118/75 (89) 98 Nasal Cannula 3.0 10/21/17 11:14 77 16 94 Nasal Cannula 3.0 10/21/17 08:00 Nasal Cannula 3.0 10/21/17 07:23 36.6 62 21 118/76 (90) 96 Nasal Cannula 3.0 10/21/17 07:03 60 16 96 Nasal Cannula 3.0 10/21/17 04:08 36.4 68 18 129/73 (91) 93 10/20/17 23:01 36.3 68 16 103/66 (78) 97 BiPAP 10/20/17 20:05 Nasal Cannula 3.0 10/20/17 19:52 36.4 72 18 109/67 (81) 96 BiPAP 10/20/17 16:04 36.6 76 20 110/77 (88) 94 Nasal Cannula 3.0 10/20/17 15:56 68 16 97 Nasal Cannula 3.0 Physical Exam General Appearance: WD/WN, no apparent distress Respiratory/Chest: lungs clear, normal breath sounds, no respiratory distress, no accessory muscle use Cardiovascular: regular rate, rhythm, no edema, no gallop Abdomen: non tender, soft Extremities: no pedal edema, no calf tenderness Neurologic/Psychiatric: alert, normal mood/affect, oriented x 3 Laboratory Results Last 24 Hours Test 10/20/17 16:44 10/20/17 20:01 10/21/17 07:32 10/21/17 11:33 Bedside Glucose 187 mg/dl 154 mg/dl 137 mg/dl 173 mg/dl Assessment and Plan Mr. 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 Small cell lung cancer with metastases - oncology input ongoing -> not a candidate for chemotherapy -> will be discharged on home hospice after discussion w/Dr. Rick - f/u w/Dr. Dow tomorrow for CT simulation - pain well controlled - continue lidoderm and fentanyl patches - palliative input appreciated as well - no further episodes of hemoptysis COPD, chronic hypoxic respiratory failure - Continue duonebs - Patient is on home dose of 3L O2 - Continue home prednisone 10 mg every morning Type 2 diabetes - 10 units lantus qhs w/SSI - glucose between 128 and 200 - can be liberal w/glucose range, but avoid hypoglycemic episodes. Hypertension / CAD / hyperlipidemia - Continue home ezetimibe and gemfibrozil 600 mg twice daily - Continue home carvedilol 12.5 twice daily, Nitrostat as needed, aspirin 81 mg daily. Edema - Continue furosemide 20 mg daily - Continue home Klor-Con 20 mEq daily GERD - Replaced home regimen w/Protonix 40 mg twice daily - Continue home sucralfate Depression/anxiety -Continue home sertraline 25 mg daily BPH -Continue Flomax 0.4 mg daily DVT prophylaxis: Lovenox 40 mg daily CODE STATUS: DNR Dispo: MedSurg - anticipate tomorrow/Sunday once home hospice arranged and pt has seen rad/onc. Case management currently working on arranging home hospice. Patient will be moving in with daughter who has started making arrangements at home. Resident Physician Supervision Note: I interviewed and examined the patient. Discussed with Dr. Sexton and agree with findings and plan as documented in the note. Any exceptions or clarifications are listed here: None Documented By: Ad Chanel sleeping comfortably no new issues vitlas noted nad breathing unlabored no pallor or icterus lung cancer, sob, rib pain -home hospice likley tomorrow once everything gets set up -sim for paliative XRT tomorrow as well Resident Tracking Resident Involvement: Resident Care Provided Care Provided: Adult Hospital Medicine Resident Tracking Resident Involvement: Resident Care Provided Care Provided: Adult Hospital Medicine
[2017-10-21] MEDS: GEMFIBROZIL 600 MG TAB PO SCH ×2 (08:05→20:04)
[2017-10-21] MEDS: ASPIRIN 81 MG ECTAB PO SCH (08:05)
[2017-10-21] MEDS: CARVEDILOL 12.5 MG TAB PO SCH ×2 (08:05→20:03)
[2017-10-21] MEDS: MAGNESIUM OXIDE 400 MG TAB PO SCH (08:05)
[2017-10-21] MEDS: PANTOprazole SOD 40 MG TAB PO SCH ×2 (08:06→20:04)
[2017-10-21] MEDS: TAMSULOSIN HCL 0.4 MG CAP PO SCH (08:06)
[2017-10-21] MEDS: FUROSEMIDE 20 MG TAB PO SCH (08:06)
[2017-10-21] MEDS: POTASSIUM CHLORIDE 20 MEQ TABCR PO SCH (08:06)
[2017-10-21] MEDS: SERTRALINE HCL 50 MG TAB PO SCH (08:06)
[2017-10-21] MEDS: LIDODERM (LIDOCAINE) PATCH 5% TD SCH (08:07)
[2017-10-21] MEDS: EZETIMIBE 10MG TAB PO SCH (08:07)
[2017-10-21] MEDS: CHECK FENTANYL PATCH PLACEMENT SCH ×3 (08:08→16:02)
[2017-10-21] MEDS: ENOXAPARIN 40 MG/0.4 ML SYR SQ SCH (08:08)
[2017-10-21] MEDS: INSULIN ASPART 100 UNITS/ML 3 ML PEN SC SCH ×4 (08:12→20:07)
[2017-10-21] MEDS: SUCRALFATE 1 GM TAB PO SCH (20:04)
[2017-10-21] MEDS: INSULIN GLARGINE SOLOSTAR 100 UNITS/ML 3 ML PEN SC SCH (20:07)
[2017-10-21] MEDS: ACETAMINOPHEN 325 MG TAB PO PRN (22:12)
[2017-10-22] VITALS (8 sets, daily range): BP systolic 118–137; BP diastolic 62–86; PULSE 64–74; TEMP 36.6–36.7; O2SAT 92–97
[2017-10-22] MEDS: CHECK FENTANYL PATCH PLACEMENT SCH ×3 (00:03→16:10)
[2017-10-22] MEDS: ALBUT/IPRATROP 3MG/0.5MG NEB 3 ML VIAL INH SCH ×4 (07:00→19:26)
--- NOTE | 2017-10-22 07:25 | Family Medicine Progress Note ---
Progress Note Date of Service Oct 22, 2017. Subjective Pt evaluation today including: conversation w/ patient, conversation w/ family , physical exam, review of studies, review of inpatient medication list Pain: Pain in ribs is well controlled with fentanyl and lidoderm patch PO Intake: Tolerating well Voiding: no voiding problems Patient is in good spirits today. No complaints. has been using brace to help with back and rib pain. Eager to go home. Reports sore throat, improved with lozenges. Constitutional: No fever, No chills Respiratory: + cough, + shortness of breath, + dyspnea on exertion, + dyspnea at rest, No hemoptysis Cardiovascular: No chest pain Abdomen: No pain, No nausea, No vomiting Musculoskeletal: + joint pain (ribcage) All Other Systems: Reviewed and Negative Medications Current Inpatient Medications Medications (Trade) Dose Ordered Sig/Magdi Route Start Time Stop Time Status Last Admin Dose Admin Acetaminophen (Tylenol Tab) 650 mg Q4H PRN PO 10/18/17 16:15 11/17/17 16:14 10/21/17 22:12 650 MG Magnesium Hydroxide (Milk Of Magnesia Susp) 30 ml Q6H PRN PO 10/18/17 16:15 11/17/17 16:14 Polyethylene (Miralax Powder Packet) 17 gm DAILY PRN PO 10/18/17 16:45 11/17/17 16:44 Ondansetron HCl (Zofran Inj) 4 mg Q6H PRN IV 10/18/17 16:15 11/17/17 16:14 Zolpidem Tartrate (Ambien Tab) 5 mg HSZ PRN PO 10/18/17 16:15 11/17/17 16:14 Insulin Aspart (novoLOG ASPART) SLIDING SCALE If C... ACHS SC 10/18/17 16:30 11/17/17 16:29 10/22/17 12:19 12 UNITS Glucose (Glucose 40% Gel) 15-30 GRAMS 15 GRAMS... UD PRN PO 10/18/17 16:15 11/17/17 16:14 Glucose (Glucose Chew Tab) 4-8 Tablets 4 Tabl... UD PRN PO 10/18/17 16:15 11/17/17 16:14 Dextrose (Dextrose 50% 50ML Syringe) 25-50ML 25ML FOR ... UD PRN IV 10/18/17 16:15 11/17/17 16:14 Glucagon (Glucagon Inj) 1 mg UD PRN SQ 10/18/17 16:15 11/17/17 16:14 Carbohydrates (Carbohydrates For Hypoglycemia) 15-30 GRAMS 15 grams if BSG 54-69... UD PRN PO 10/18/17 16:15 11/17/17 16:14 Aspirin (Ecotrin Tab) 81 mg DAILY PO 10/19/17 09:00 11/18/17 08:59 10/22/17 08:10 81 MG Carvedilol (Coreg Tab) 12.5 mg BID PO 10/18/17 21:00 11/17/17 20:59 10/22/17 08:09 12.5 MG EZETIMIBE (Zetia Tab) 10 mg DAILY PO 10/19/17 09:00 11/18/17 08:59 10/22/17 08:09 10 MG Fentanyl (Duragesic Patch) 12 mcg Q72H TD 10/20/17 09:00 11/03/17 08:59 10/20/17 08:30 12 MCG Furosemide (Lasix Tab) 20 mg DAILY PO 10/19/17 09:00 11/18/17 08:59 10/22/17 08:10 20 MG Gemfibrozil (Lopid Tab) 600 mg BID PO 10/18/17 21:00 11/17/17 20:59 10/22/17 08:10 600 MG Levalbuterol (Xopenex Hfa Inhaler) 2 puffs Q6 PRN INH 10/18/17 16:15 11/17/17 16:14 Lidocaine (Lidoderm Patch 5%) 1 patch DAILY TD 10/19/17 09:00 11/18/17 08:59 10/22/17 08:11 1 PATCH Magnesium Oxide (Mag-Ox Tab) 400 mg DAILY PO 10/19/17 09:00 11/18/17 08:59 10/22/17 08:10 400 MG Nitroglycerin (Nitrostat Tab) 0.4 mg PRN UT 10/18/17 16:15 11/17/17 16:14 Potassium Chloride (Klor-Con Tab) 20 meq DAILY PO 10/19/17 09:00 11/18/17 08:59 10/22/17 08:11 20 MEQ Prednisone (PredniSONE TAB) 10 mg DAILY PO 10/19/17 09:00 11/18/17 08:59 10/22/17 08:08 10 MG Sertraline HCl (Zoloft Tab) 25 mg DAILY PO 10/19/17 09:00 11/18/17 08:59 10/22/17 08:10 25 MG Sucralfate (Carafate Tab) 1 gm PM PO 10/18/17 21:00 11/17/17 20:59 10/21/17 20:04 1 GM Tamsulosin HCl (Flomax Cap) 0.4 mg DAILY PO 10/19/17 09:00 11/18/17 08:59 10/22/17 08:11 0.4 MG Pantoprazole Sodium (Protonix Tab) 40 mg BID PO 10/18/17 21:00 11/17/17 20:59 10/22/17 08:08 40 MG Miscellaneous (Fentanyl Patch Remove & Waste) 1 ea Q3D@0859 N/A 10/20/17 08:59 11/19/17 08:58 10/20/17 08:36 1 EA Miscellaneous Information (Check Fentanyl Patch Placement) 1 ea QS N/A 10/19/17 00:00 11/18/17 00:00 10/22/17 08:07 1 EA Albuterol/ Ipratropium (Duoneb) 3 ml QIDR INH 10/18/17 20:00 11/17/17 19:59 10/22/17 11:26 3 ML Morphine Sulfate (MoRPHine SULFATE INJ) 4 mg Q4H PRN IV 10/18/17 16:15 11/01/17 16:14 Lorazepam 0.5 mg/ Syringe 1 ml @ 0.5 mls/min DAILY PRN IV 10/18/17 16:15 11/17/17 16:14 Miscellaneous (Remove Lidoderm Patch) 1 ea DAILY@21 N/A 10/18/17 21:00 11/17/17 20:59 10/21/17 20:02 1 EA Miscellaneous Information (Order Awaiting Action) 1 ea QS N/A 10/19/17 00:00 11/18/17 00:00 Insulin Glargine (Lantus Solostar Pen) 10 units HS SC 10/19/17 21:00 11/18/17 20:59 10/21/17 20:07 10 UNITS Gadobutrol (Gadavist) 10.5 mmol UD PRN IV 10/20/17 11:30 10/24/17 11:29 Enoxaparin Sodium (Lovenox Inj) 40 mg QAM SQ 10/21/17 09:00 11/20/17 08:59 10/22/17 08:08 40 MG Objective Vital Signs Date Time Temp Pulse Resp B/P (MAP) Pulse Ox O2 Delivery O2 Flow Rate FiO2 10/22/17 07:00 69 16 96 Nasal Cannula 3.0 10/22/17 04:00 36.6 64 18 118/62 (80) 93 BiPAP 10/21/17 23:07 37.0 83 20 111/66 (81) 95 BiPAP 10/21/17 20:05 Nasal Cannula 3.0 10/21/17 19:43 36.6 77 18 130/76 (94) 95 Nasal Cannula 3.0 10/21/17 19:01 83 16 94 Nasal Cannula 3.0 10/21/17 15:43 72 16 96 Nasal Cannula 3.0 10/21/17 15:41 36.5 70 21 132/81 (98) 95 Nasal Cannula 3.0 10/21/17 11:53 36.7 68 21 118/75 (89) 98 Nasal Cannula 3.0 10/21/17 11:14 77 16 94 Nasal Cannula 3.0 10/21/17 08:00 Nasal Cannula 3.0 Physical Exam General Appearance: WD/WN, no apparent distress Eyes: PERRL, EOMI ENT: hearing grossly normal, pharynx normal Neck: no adenopathy, trachea midline Respiratory/Chest: lungs clear, normal breath sounds, no respiratory distress Cardiovascular: regular rate, rhythm, no murmur Abdomen: normal bowel sounds, non tender, soft Extremities: normal range of motion, non-tender Neurologic/Psychiatric: proofreader II-XII nml as tested, no motor/sensory deficits, alert, normal mood/affect, oriented x 3 Skin: normal color Laboratory Results Test 10/22/17 11:17 Bedside Glucose 222 mg/dl (70-99) Assessment and Plan Mr. 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 Small cell lung cancer with metastases - oncology input ongoing -> not a candidate for chemotherapy -> will be discharged on home hospice per discussion w/Dr. Rick - f/u w/Dr. Dow tomorrow for CT simulation - pain well controlled - continue lidoderm and fentanyl patches - palliative input appreciated as well - no further episodes of hemoptysis COPD, chronic hypoxic respiratory failure - Continue duonebs - Patient is on home dose of 3L O2 - Continue home prednisone 10 mg every morning Type 2 diabetes - 10 units lantus qhs w/SSI - glucose between 128 and 200 - can be liberal w/glucose range, but avoid hypoglycemic episodes. Hypertension / CAD / hyperlipidemia - Continue home ezetimibe and gemfibrozil 600 mg twice daily - Continue home carvedilol 12.5 twice daily, Nitrostat as needed, aspirin 81 mg daily. Edema - Continue furosemide 20 mg daily - Continue home Klor-Con 20 mEq daily GERD - Replaced home regimen w/Protonix 40 mg twice daily - Continue home sucralfate Depression/anxiety -Continue home sertraline 25 mg daily BPH -Continue Flomax 0.4 mg daily DVT prophylaxis: Lovenox 40 mg daily FEN: PO fluids, regular diet CODE STATUS: DNR Dispo: MedSurg - anticipate today/Sunday once home hospice arranged. Case management currently working on arranging home hospice. Patient will be moving in with daughter who has started making arrangements at home. Resident Tracking Resident Involvement: Resident Care Provided Care Provided: Adult Hospital Medicine Reviewed: Pt Seen/Exam by Me History no new concerns looking forward to going home. family at bedside Constitutional: denies: fever Respiratory: negative: short of breath Cardiovascular: denies chest pain General Appearance: no apparent distress (sitting at the edge of bed) Respiratory: lungs clear, no respiratory distress Cardiovascular: regular rate, rhythm Neurologic/Psychiatric: alert, oriented x 3 Skin Characteristics: warm/dry Assessment/Plan Resident Physician Supervision Note: I independently interviewed and examined the patient and verified the mckay history and physical, reviewed labs and image studies, discussed the case with the resident Dr. Fierro and agree with the findings and care plan.
[2017-10-22] MEDS: PANTOprazole SOD 40 MG TAB PO SCH ×2 (08:08→20:18)
[2017-10-22] MEDS: ENOXAPARIN 40 MG/0.4 ML SYR SQ SCH (08:08)
[2017-10-22] MEDS: EZETIMIBE 10MG TAB PO SCH (08:09)
[2017-10-22] MEDS: CARVEDILOL 12.5 MG TAB PO SCH ×2 (08:09→20:18)
[2017-10-22] MEDS: MAGNESIUM OXIDE 400 MG TAB PO SCH (08:10)
[2017-10-22] MEDS: FUROSEMIDE 20 MG TAB PO SCH (08:10)
[2017-10-22] MEDS: ASPIRIN 81 MG ECTAB PO SCH (08:10)
[2017-10-22] MEDS: SERTRALINE HCL 50 MG TAB PO SCH (08:10)
[2017-10-22] MEDS: GEMFIBROZIL 600 MG TAB PO SCH ×2 (08:10→20:19)
[2017-10-22] MEDS: TAMSULOSIN HCL 0.4 MG CAP PO SCH (08:11)
[2017-10-22] MEDS: LIDODERM (LIDOCAINE) PATCH 5% TD SCH (08:11)
[2017-10-22] MEDS: POTASSIUM CHLORIDE 20 MEQ TABCR PO SCH (08:11)
[2017-10-22] MEDS: INSULIN ASPART 100 UNITS/ML 3 ML PEN SC SCH ×4 (08:14→20:24)
[2017-10-22] MEDS ORDERED: CHLORASEPTIC 1.4% SOLN 180 ML BTL MT PRN (16:30)
[2017-10-22] MEDS ORDERED: NURSING DECISION MEDICATION ORDER SCH (16:45)
[2017-10-22] MEDS ORDERED: COUGH DROP (SUGAR FREE) LOZ 24 LOZ/1 BOX LOZ PRN (17:00)
[2017-10-22] MEDS: SUCRALFATE 1 GM TAB PO SCH (20:18)
[2017-10-22] MEDS: INSULIN GLARGINE SOLOSTAR 100 UNITS/ML 3 ML PEN SC SCH (20:25)
[2017-10-23] MEDS: CHECK FENTANYL PATCH PLACEMENT SCH ×2 (00:11→08:36)
[2017-10-23 04:30] VITALS: BP 138/99; PULSE 72; TEMP 36.7; O2SAT 95
[2017-10-23] MEDS: ALBUT/IPRATROP 3MG/0.5MG NEB 3 ML VIAL INH SCH ×2 (07:01→11:07)
[2017-10-23 07:03] VITALS: PULSE 76; O2SAT 96
[2017-10-23 08:01] VITALS: BP 138/83; PULSE 68; TEMP 36.6; O2SAT 96
[2017-10-23] MEDS: FENTANYL 12 MCG/HR TDSY TD SCH (08:41)
[2017-10-23] MEDS: ENOXAPARIN 40 MG/0.4 ML SYR SQ SCH (08:41)
[2017-10-23] MEDS: MAGNESIUM OXIDE 400 MG TAB PO SCH (08:41)
[2017-10-23] MEDS: LIDODERM (LIDOCAINE) PATCH 5% TD SCH (08:41)
[2017-10-23] MEDS: PANTOprazole SOD 40 MG TAB PO SCH (08:42)
[2017-10-23] MEDS: SERTRALINE HCL 50 MG TAB PO SCH (08:42)
[2017-10-23] MEDS: EZETIMIBE 10MG TAB PO SCH (08:42)
[2017-10-23] MEDS: GEMFIBROZIL 600 MG TAB PO SCH (08:42)
[2017-10-23] MEDS: TAMSULOSIN HCL 0.4 MG CAP PO SCH (08:42)
[2017-10-23] MEDS: ASPIRIN 81 MG ECTAB PO SCH (08:42)
[2017-10-23] MEDS: FUROSEMIDE 20 MG TAB PO SCH (08:42)
[2017-10-23] MEDS: POTASSIUM CHLORIDE 20 MEQ TABCR PO SCH (08:42)
[2017-10-23] MEDS: CARVEDILOL 12.5 MG TAB PO SCH (08:43)
[2017-10-23] MEDS: FENTANYL PATCH REMOVE & WASTE SCH (08:45)
[2017-10-23] MEDS: INSULIN ASPART 100 UNITS/ML 3 ML PEN SC SCH (08:45)
--- NOTE | 2017-10-23 10:35 | Discharge Instructions ---
Discharge Instructions Date of Service Oct 23, 2017. Admission Reason for Admission: Hemoptysis, Copd, Lung Ca Discharge Discharge Diagnosis / Problem: Lung Cancer with bone involvement Discharge Goals Goal(s): Decrease discomfort, Increase independence Activity Recommendations Activity Limitations: per Instructions/Follow-up section . Instructions / Follow-Up Instructions / Follow-Up During this visit, you were evaluated for coughing up blood and shortness of breath. Upon further scanning of your chest, it appears your lung cancer has worsened, and that it has begun to involve your bones. As discussed with Dr. Rick, chemotherapy was not deemed to be the best option for you. You have elected to proceed with hospice care at home as well as radiation, which will help relieve your pain. Follow up with the radiation schedule that will be given to you. Continue with your home medications as otherwise prescribed. We recommend you follow up with your primary care provider within the next 7-10 days to discuss this visit and for any refills of medications you may need. Current Hospital Diet Patient's current hospital diet: Diabetes Type 2 Diet, AHA Diet (Heart Healthy) Discharge Diet Recommended Diet: AHA Diet (Heart Healthy), Diabetes Type 2 Diet Pending Studies Studies pending at discharge: no Laboratory Results Hemoglobin A1c Test 10/02/17 06:55 Range/Units Estimated Average Glucose 189 mg/dl Hemoglobin A1c 8.2 H 4.5-5.6 % Medical Emergencies . Who to Call and When: Medical Emergencies: If at any time you feel your situation is an emergency, please call 911 immediately. . Non-Emergent Contact Non-Emergency issues call your: Primary Care Provider . . "Provider Documentation" section prepared by Fatou Fierro. .
--- NOTE | 2017-10-23 10:39 | Discharge Summary ---
Discharge Summary Date of Service Oct 23, 2017. Discharge Summary Admission Date: Oct 18, 2017 at 14:23 Discharge Date: Oct 23, 2017 Discharge Disposition: Home with services (home hospice) Principal Diagnosis: Small cell lung cancer with bony metastases Problems/Secondary Diagnoses: COPD, chronic hypoxic respiratory failure Type 2 diabetes Hypertension / CAD / hyperlipidemia Edema GERD Depression/anxiety BPH Immunizations: Have You Had Influenza Vaccine: Yes History of Tetanus Vaccine?: No History of Pneumococcal: Yes History of Hepatitis B Vaccine: No Medication Reconciliation Continued Medications: Albuterol Sulf (Proventil 0.083% 2.5MG/3ML) 2.5 Mg/3 Ml Nebu 2.5 MG INH QID Aspirin (Aspirin Ec) 81 Mg Tab 81 MG PO DAILY Carvedilol (Coreg) 12.5 Mg Tab 12.5 MG PO BID Esomeprazole Magnesium (Nexium) 40 Mg Capcr 40 MG PO BID for ACID REFLUX Ezetimibe (Zetia) 10 Mg Tab 10 MG PO DAILY for HIGH CHOLESTEROL Fentanyl (Fentanyl) 12 Mcg Tdsy 12 MCG TOP [id number] Elcuyuwqrka-Zaljebglsbiv-Dfaoj (Trelegy Ellipta 100-62.5-25 Mcg/INH) 1 Aer Aer 1 PUFF INH DAILY Furosemide (Lasix) 20 Mg Tab 20 MG PO DAILY for FLUID RETENTION Gemfibrozil (Lopid) 600 Mg Tab 600 MG PO BID for HIGH CHOLESTEROL Ipratropium Orestes (Atrovent 0.02% Soln) 2.5 Ml Nebu 2.5 ML INH QID for COPD Levalbuterol Tartrate (Levalbuterol Tartrate Hfa) 45 Mcg/Act Aer 2 INHA PO Q6 PRN for COPD Lidocaine (Lidocaine) 1 Patch Tdsy 1 PATCH TD DAILY PRN for Pain, #10 PATCH Linagliptin (Tradjenta) 5 Mg Tab 5 MG PO DAILY Magnesium Oxide (Mag-Ox) 400 Mg Tab 400 MG PO DAILY Metformin Hcl (Glucophage) 1,000 Mg Tab 1000 MG PO BID for DIABETES Nitroglycerin (Nitrostat) 0.4 Mg Tab 0.4 MG UT PRN, 0 Refills ONE TABLET UNDER TONGUE EVERY 5 MINUTES IF NEEDED FOR CHEST PAIN. NO MORE THAN 3 TABLETS IN 15 MINUTES. Oxycodone Hcl (Oxycontin) 15 Mg Tab 15 MG PO Q6 PRN for Pain, TAB Potassium Chloride (Klor-Con M20) 20 Meq Tabcr 20 MEQ PEG DAILY Prednisone (Prednisone) 10 Mg Tab 10 MG PO DAILY for COPD Sertraline (Zoloft) 25 Mg Tab 1 TAB PO DAILY for Depression Sucralfate (Sucralfate) 1 Gm Tab 1 GM PO PM for ACID REFLUX Tamsulosin Hcl (Flomax) 0.4 Mg Cap 0.4 MG PO DAILY for PROSTATE DISORDER Discharge Exam Review of Systems: Constitutional: No fever, No chills ENT: + sore throat Respiratory: + cough, + shortness of breath, + dyspnea on exertion Cardiovascular: No chest pain Abdomen: No pain, No nausea, No diarrhea, No constipation Musculoskeletal: + joint pain (rib pain) Physical Exam: General Appearance: WD/WN, no apparent distress Eyes: EOMI ENT: hearing grossly normal Respiratory/Chest: no respiratory distress, no accessory muscle use, + decreased breath sounds Cardiovascular: regular rate, rhythm, no edema, no murmur, normal peripheral pulses Abdomen / GI: non tender, soft Neurologic/Psychiatric: alert, normal mood/affect, oriented x 3 Hospital Course Mr. 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 Shortness of breath - Likely sec to lung ca. Stable at 3L home oxygen Hemoptysis - no further episodes of hemoptysis Small cell lung cancer with metastases - oncology input ongoing -> not a candidate for chemotherapy -> will be discharged on home hospice per discussion w/Dr. Rick - f/u w/Dr. Dow for radiation - pain well controlled - continue lidoderm and fentanyl patches COPD, chronic hypoxic respiratory failure - Continue duonebs - Patient is on home dose of 3L O2 - Continue home prednisone 10 mg every morning Type 2 diabetes - 10 units lantus qhs w/SSI - glucose between 128 and 200 - can be liberal w/glucose range, but will try avoid hypoglycemic episodes. Hypertension / CAD / hyperlipidemia - Continue home ezetimibe and gemfibrozil 600 mg twice daily - Continue home carvedilol 12.5 twice daily, Nitrostat as needed, aspirin 81 mg daily. Edema - Continue furosemide 20 mg daily - Continue home Klor-Con 20 mEq daily GERD - Replaced home regimen w/Protonix 40 mg twice daily - Continue home sucralfate Depression/anxiety -Continue home sertraline 25 mg daily BPH -Continue Flomax 0.4 mg daily Total Time Spent: Greater than 30 minutes This includes examination of the patient, discharge planning, medication reconciliation, and communication with other providers. Discharge Instructions Please refer to the electronic Patient Visit Report (Discharge Instructions) for additional information. Additional Copies To Raj Shi D.O. Resident Tracking Resident Involvement: Resident Care Provided Care Provided: [facility] Reviewed: Pt Seen/Exam by Me History breathing stable. at 3 L O2 Constitutional: denies: fever Respiratory: negative: short of breath Cardiovascular: denies chest pain Gastrointestinal/Abdominal: negative: abdominal pain General Appearance: no apparent distress Respiratory: lungs clear, no respiratory distress Cardiovascular: regular rate, rhythm Neurologic/Psychiatric: alert, oriented x 3 Skin Characteristics: warm/dry Assessment/Plan Resident Physician Supervision Note: I independently interviewed and examined the patient and verified the mckay history and physical, reviewed labs and image studies, discussed the case with the resident Dr. Fierro and agree with the findings and care plan. Time spent in discharge 35 min
[2017-10-23 11:07] VITALS: PULSE 70; O2SAT 96
[2017-10-23 11:10] VITALS: BP 138/83; PULSE 70; TEMP 36.6; O2SAT 96
[2017-10-23 11:24] VITALS: BP 111/74; PULSE 69; TEMP 36.7; O2SAT 94
--- NOTE | 2017-10-23 15:58 | Palliative Care Progress Note ---
Palliative Care Progress Note Date of Service Oct 23, 2017. Subjective Pt evaluation today including: conversation w/ patient, physical exam, chart review Patient seen this AM prior to discharge. Patient states he is to have radiation treatment today then probably go home. He states hospice is already set up and put a bed in his daughter's home already. He has no pain and feels "okay." Review of Systems Constitutional: + weakness (improved) ENT: No trouble swallowing Respiratory: + dyspnea on exertion, No wheezing, No shortness of breath Cardiac: No chest pain, No edema Abdomen: No pain, No nausea, No vomiting Male : No problem reported Psychiatric: No depression symptoms Objective Vital Signs Date Time Temp Pulse Resp B/P (MAP) Pulse Ox O2 Delivery O2 Flow Rate FiO2 10/23/17 11:24 36.7 69 18 111/74 (86) 94 Nasal Cannula 3.0 10/23/17 11:10 36.6 70 16 96 Nasal Cannula 10/23/17 11:07 70 16 96 Nasal Cannula 3.0 10/23/17 08:01 36.6 68 22 138/83 (101) 96 Nasal Cannula 3.0 10/23/17 07:03 76 16 96 Nasal Cannula 3.0 10/23/17 04:30 36.7 72 20 138/99 (112) 95 Nasal Cannula 3.0 10/23/17 00:05 Nasal Cannula 3.0 10/22/17 20:16 72 136/80 (98) 10/22/17 19:27 72 16 92 Nasal Cannula 3.0 Physical Exam General Appearance: no apparent distress ENT: hearing grossly normal Neck: supple, no JVD Respiratory/Chest: no respiratory distress, no accessory muscle use, + decreased breath sounds Cardiovascular: regular rate, rhythm, no edema Abdomen: normal bowel sounds, non tender, soft, + pertinent finding (obese abdomen) Neurologic/Psychiatric: alert, normal mood/affect, oriented x 3 Skin: normal color Laboratory Results Last 24 Hours Test 10/22/17 16:37 10/22/17 20:14 10/23/17 07:39 Bedside Glucose 211 mg/dl 186 mg/dl 132 mg/dl Assessment and Plan Problem list: Left rib pain Weakness Hemoptysis- resolved for now Small cell lung carcinoma, metastatic Goals of care POLST done on Sunday Palliative care recs: -Discussed with patient. He DOES want to pursue chemo/radiation therapy. -His goal is to prolong his life, but as comfortably as possible. He is realistic in the sense that if treatment does not work or he is unable to tolerate, he would likely forego any further treatment. -Patient is adamant that he wants to be a DO NOT RESUSCITATE. HE would eventually be amenable to hospice services, as he is familiar with them from when his was on hospice. -Continue fentanyl patch and lidoderm patch for his rib fracture. He is comfortable with his current pain rating. -POLST form completed as follows: DNR, limited additional interventions, abx if life can be prolonged, trial period of IVF, NO FEEDING TUBE. Additional orders: "Trial of treatment, including abx, if it's going to help. If no hope of meaningful recovery, make me comfortable." -Patient to move in with his daughter/IFTIKHAR Nelson. He is going to eventually be admitted to hospice per his wish. Possibly leaving today. Total time spent 25 minutes with >50% of time spent at bedside with patient counseling/discussing condition and goals of care. Palliative Performance Scale: 70 %
== END 2017-10-23 12:10 | disposition hospice, home (50) | DRG 181 ==
LOC: C.MS2W 14:23
PROVIDERS: ADMIT Family Medicine; ATTEND Family Medicine
DX: C34.11 Malignant neoplasm of upper lobe, right bronchus or lung (principal); C79.51 Secondary malignant neoplasm of bone; R04.2 Hemoptysis; J96.11 Chronic respiratory failure with hypoxia; C79.89 Secondary malignant neoplasm of other specified sites; C78.7 Secondary malignant neoplasm of liver and intrahepatic bile duct; Z51.5 Encounter for palliative care; G89.3 Neoplasm related pain (acute) (chronic); M84.58XD Pathological fracture in neoplastic disease, other specified site, subsequent encounter for fracture with routine healing; R62.7 Adult failure to thrive; J44.9 Chronic obstructive pulmonary disease, unspecified; E11.9 Type 2 diabetes mellitus without complications; I10 Essential (primary) hypertension; R60.9 Edema, unspecified; K21.9 Gastro-esophageal reflux disease without esophagitis; I25.2 Old myocardial infarction; I25.10 Atherosclerotic heart disease of native coronary artery without angina pectoris; E78.5 Hyperlipidemia, unspecified; N40.0 Benign prostatic hyperplasia without lower urinary tract symptoms; F32.9 Major depressive disorder, single episode, unspecified; F41.9 Anxiety disorder, unspecified; Z51.81 Encounter for therapeutic drug level monitoring; E66.01 Morbid (severe) obesity due to excess calories; Z79.899 Other long term (current) drug therapy; Z79.4 Long term (current) use of insulin; Z79.891 Long term (current) use of opiate analgesic; Z79.82 Long term (current) use of aspirin; Z79.52 Long term (current) use of systemic steroids; Z99.81 Dependence on supplemental oxygen; Z66 Do not resuscitate; Z95.5 Presence of coronary angioplasty implant and graft; Z68.37 Body mass index [BMI] 37.0-37.9, adult; Z87.891 Personal history of nicotine dependence; Z88.5 Allergy status to narcotic agent; Z80.0 Family history of malignant neoplasm of digestive organs

== ENCOUNTER → 2017-10-18 | Outpatient (CLI) | payer OTHER, MEDICARE ==
--- NOTE | 2017-10-18 12:16 | DIAGNOSTIC IMAGING REPORT ---
CHEST 2 VIEWS ROUTINE CLINICAL HISTORY: J44.9, C34.90 hemoptysis COMPARISON STUDY: 10/14/2017 FINDINGS: Unchanging bibasilar like atelectatic change. Slight improvement left base. Distinct fullness of the right para mediastinal border unchanged from the prior exam. This is consistent with the patient's produces described mass at that site. Unchanging atelectatic changes right pulmonary apex. No evidence for pneumothorax. IMPRESSION: Stable examination of the chest with no major change from the prior study. No significant pneumothorax. Unchanging to slightly improved basilar atelectatic atelectasis. The above report was generated using voice recognition software. It may contain grammatical, syntax or spelling errors. Electronically signed by: Sushil Elaine M.D. 10/18/2017 12:15 PM Dictated Date/Time: 10/18/2017 12:13 PM
[2017-10-18 13:30] LABS: BASO % 0.3 %; BASO ABS # 0.02 K/uL (0-0.2); EOS % 0.8 %; EOS ABS # 0.06 K/uL (0-0.5); HEMATOCRIT 33.4 % (42-52); HEMOGLOBIN 10.8 g/dL (14.0-18.0); IG# 0.06 K/uL (0.00-0.02); LYMPH % 11.7 %; LYMPH ABS # 0.92 K/uL (1.2-3.4); MEAN CELL VOLUME 92.8 fL (80-100); MEAN CORPUSCULAR HGB CONC 32.3 g/dl (32-36); MEAN PLATELET VOLUME 10.1 fL (7.4-10.4); MONO % 6.2 %; MONO ABS # 0.49 K/uL (0.11-0.59); NEUT % 80.2 %; PLATELET COUNT 202 K/uL (130-400); RED CELL DISTRIBUTION WIDTH CV 14.7 % (11.5-14.5); RED CELL DISTRIBUTION WIDTH SD 49.8 fL (36.4-46.3); WHITE BLOOD COUNT 7.85 K/uL (4.8-10.8)
[2017-10-18 13:42] LABS: PTT PATIENT 24.1 SECONDS (21.0-31.0)
== END | disposition home or self-care (01) ==
LOC: C.RAD1850 11:41
PROVIDERS: ATTEND Internal Medicine Critical Care Medicine
DX: J44.9 Chronic obstructive pulmonary disease, unspecified (principal); C34.90 Malignant neoplasm of unspecified part of unspecified bronchus or lung; R04.2 Hemoptysis